=== PATIENT | female | born 1940 | race Caucasian/White ===

== ENCOUNTER 2016-04-20 13:57 | Inpatient (IN) | payer MEDICARE, BC, OTHER ==
[2016-04-20] MEDS ORDERED: Albuterol/Ipratropium 3.0-0.5 MG/3 ML Neb Soln NEB ONE (14:07)
[2016-04-20] MEDS ORDERED: methylPREDNISolone Sodium Succinate 125 MG/2 ML SDV IVPUSH ONE (14:08)
--- NOTE | 2016-04-20 14:09 | EDM.PDOC ---
ED HPI GENERAL MEDICAL PROBLEM - General Stated Complaint: UNK Time Seen by Provider: 04/20/16 14:09 Source of Information: Reports: Patient - History of Present Illness INITIAL COMMENTS - FREE TEXT/NARRATIVE: HISTORY AND PHYSICAL: History of present illness: [] Patient presents with one week of cough and increasing weakness only able to ambulate about 20 feet without becoming short significantly short of breath Initial presentation was to the local walk-in clinic, they directed her over to us She has had several falls since Monday do to weakened state No fever nausea vomiting chills sweats no chest pain headache dizziness or palpitation Review of systems: As per history of present illness and below otherwise all systems reviewed and negative. Past medical history: As per history of present illness and as reviewed below otherwise noncontributory. Surgical history: As per history of present illness and as reviewed below otherwise noncontributory. Social history: No reported history of drug or alcohol abuse. Family history: As per history of present illness and as reviewed below otherwise noncontributory. Physical exam: HEENT: Atraumatic, normocephalic, pupils reactive, negative for conjunctival pallor or scleral icterus, mucous membranes moist, throat clear, neck supple, nontender, trachea midline. Lungs: Clear to auscultation, breath sounds equal bilaterally, chest nontender. Heart: S1S2, regular, negative for clicks, rubs, or JVD. Abdomen: Soft, nondistended, nontender. Negative for masses or hepatosplenomegaly. Negative for costovertebral tenderness. Pelvis: Stable nontender. Genitourinary: Deferred. Rectal: Deferred. Extremities: Atraumatic, negative for cords or calf pain. Neurovascular unremarkable. Neuro: Awake, alert, oriented. Cranial nerves II through XII unremarkable. Cerebellum unremarkable. Motor and sensory unremarkable throughout. Exam nonfocal. Diagnostics: [] Lab as below Chest one view EKG Left wrist [address] without contrast Therapeutics: [] Normal saline 125 cc per hour DuoNeb Solu-Medrol 125 mg IV Impression: [] Cough Supratherapeutic INR Definitive disposition and diagnosis as appropriate pending reevaluation and review of above. chest Pain Score (Numeric/FACES): 5 - Related Data Allergies Allergy/AdvReac Type Severity Reaction Status Date / Time hydrocodone Allergy Rash Verified 04/20/16 14:10 Home Meds: Home Meds Melatonin/Pyridoxine HCl (B6) [Melatonin 5 mg Tablet] 1 each PO BEDTIME [History] Cholecalciferol (Vitamin D3) [Vitamin D3] 2,000 unit PO DAILY 12/10/15 [History] FLUoxetine HCl [Fluoxetine HCl] 40 mg PO DAILY 12/10/15 [History] Iron Polysaccharide Complex [Ferric X-150] 150 mg PO DAILY 12/10/15 [History] OLANZapine [Olanzapine] 5 mg PO DAILY 12/10/15 [History] Warfarin [Coumadin] 5 mg PO DAILY 12/10/15 [History] traZODone 50 mg PO ONETIME 12/10/15 [History] Past Medical History Other Musculoskeletal History: left forearm fracture Psychiatric History: Reports: Anxiety, Depression Oncologic (Cancer) History: Reports: Breast - Past Surgical History HEENT Surgical History: Reports: Adenoidectomy, Tonsillectomy GI Surgical History: Reports: Appendectomy, Cholecystectomy Female Surgical History: Reports: Hysterectomy Oncologic Surgical History: Reports: Mastectomy Social & Family History - Family History Family Medical History: Noncontributory - Tobacco Use Smoking Status *Q: Never Smoker - Recreational Drug Use Recreational Drug Use: No ED ROS GENERAL - Review of Systems Review Of Systems: ROS reveals no pertinent complaints other than HPI. ED EXAM, GENERAL - Physical Exam Exam: See Below Course - Vital Signs Last Recorded V/S: Last Vital Signs Temp 36.7 C 04/20/16 15:31 Pulse 79 04/20/16 15:31 Resp 30 H 04/20/16 15:31 BP 105/86 04/20/16 15:31 Pulse Ox 96 04/20/16 15:31 - Orders/Labs/Meds Orders: Active Orders 24 hr Category Date Time Status EKG Documentation Completion [RC] STAT Care 04/20/16 14:07 Active RT Aerosol Therapy [RC] ASDIRECTED Care 04/20/16 14:07 Active CULTURE BLOOD [BC] Stat Lab 04/20/16 14:29 Received CULTURE BLOOD [BC] Stat Lab 04/20/16 14:47 Received Sodium Chloride 0.9% [Normal Saline] 1,000 ml Med 04/20/16 14:15 Active IV STAT Blood Culture x2 Reflex Set [OM.PC] Stat Oth 04/20/16 14:13 Ordered Medication Orders Sodium Chloride (Normal Saline) 1,000 mls @ 125 mls/hr IV STAT DEVIN Last Admin: 04/20/16 14:34 Dose: 125 mls/hr Labs: Laboratory Tests 04/20/16 04/20/16 04/20/16 Range/Units 14:29 14:29 14:29 WBC 4.27 (4.0-11.0) K/uL RBC 4.02 L (4.30-5.90) M/uL Hgb 12.3 (12.0-16.0) g/dL Hct 37.9 (36.0-46.0) % MCV 94.3 (80.0-98.0) fL MCH 30.6 (27.0-32.0) pg MCHC 32.5 (31.0-37.0) g/dL RDW Std Deviation 49.9 (28.0-62.0) fl RDW Coeff of Joaquin 15 (11.0-15.0) % Plt Count 143 L (150-400) K/uL MPV 10.20 (7.40-12.00) fL Neut % (Auto) 44.0 L (48.0-80.0) % Lymph % (Auto) 45.0 H (16.0-40.0) % [place] % (Auto) 10.3 (0.0-15.0) % Eos % (Auto) 0.2 (0.0-7.0) % Baso % (Auto) 0.5 (0.0-1.5) % Neut # 1.9 (1.4-5.7) K/uL Lymph # 1.9 (0.6-2.4) K/uL [place] # 0.4 (0.0-0.8) K/uL Eos # 0.0 (0.0-0.7) K/uL Baso # 0.0 (0.0-0.1) K/uL Nucleated RBC % 0.0 /100WBC Nucleated RBCs # 0 K/uL INR (0.86-1.11) Sodium 141 (136-146) mmol/L Potassium 3.9 (3.5-5.1) mmol/L Chloride 105 (98-110) mmol/L Carbon Dioxide 26 (21-31) mmol/L BUN 11 (6.0-23.0) mg/dL Creatinine 0.7 (0.6-1.5) mg/dL Est Cr Clr Drug Dosing TNP Estimated GFR (MDRD) > 60.0 ml/min Glucose 96 (60-110) mg/dL Calcium 8.4 L (8.8-10.8) mg/dL Total Bilirubin 0.4 (0.1-1.5) mg/dL AST 43 H (5-40) IU/L ALT 30 (8-54) IU/L Alkaline Phosphatase 83 (40-150) Troponin I < 0.10 (0.0-0.29) NG/ML B-Natriuretic Peptide (<100) PG/ML Total Protein 6.2 (6.0-8.0) g/dL Albumin 3.7 (3.4-4.8) g/dL Globulin 2.5 (2.0-3.5) g/dL Albumin/Globulin Ratio 1.5 (1.3-2.8) Urine Color Urine Appearance Urine pH (5.0-8.0) Ur Specific [place] (1.001-1.035) Urine Protein (NEGATIVE) mg/dL Urine Glucose (UA) (NEGATIVE) mg/dL Urine Ketones (NEGATIVE) mg/dL Urine Occult Blood (NEGATIVE) Urine Nitrite (NEGATIVE) Urine Bilirubin (NEGATIVE) Urine Urobilinogen (<2.0) EU/dL Ur Leukocyte Esterase (NEGATIVE) Urine RBC (0-2/HPF) Urine WBC (0-5/HPF) Ur Epithelial Cells (NONE-FEW) Urine Bacteria (NEGATIVE) 04/20/16 04/20/16 04/20/16 Range/Units 14:29 14:29 15:00 WBC (4.0-11.0) K/uL RBC (4.30-5.90) M/uL Hgb (12.0-16.0) g/dL Hct (36.0-46.0) % MCV (80.0-98.0) fL MCH (27.0-32.0) pg MCHC (31.0-37.0) g/dL RDW Std Deviation (28.0-62.0) fl RDW Coeff of Joaquin (11.0-15.0) % Plt Count (150-400) K/uL MPV (7.40-12.00) fL Neut % (Auto) (48.0-80.0) % Lymph % (Auto) (16.0-40.0) % [place] % (Auto) (0.0-15.0) % Eos % (Auto) (0.0-7.0) % Baso % (Auto) (0.0-1.5) % Neut # (1.4-5.7) K/uL Lymph # (0.6-2.4) K/uL [place] # (0.0-0.8) K/uL Eos # (0.0-0.7) K/uL Baso # (0.0-0.1) K/uL Nucleated RBC % /100WBC Nucleated RBCs # K/uL INR 5.49 H (0.86-1.11) Sodium (136-146) mmol/L Potassium (3.5-5.1) mmol/L Chloride (98-110) mmol/L Carbon Dioxide (21-31) mmol/L BUN (6.0-23.0) mg/dL Creatinine (0.6-1.5) mg/dL Est Cr Clr Drug Dosing Estimated GFR (MDRD) ml/min Glucose (60-110) mg/dL Calcium (8.8-10.8) mg/dL Total Bilirubin (0.1-1.5) mg/dL AST (5-40) IU/L ALT (8-54) IU/L Alkaline Phosphatase (40-150) Troponin I (0.0-0.29) NG/ML B-Natriuretic Peptide 43 (<100) PG/ML Total Protein (6.0-8.0) g/dL Albumin (3.4-4.8) g/dL Globulin (2.0-3.5) g/dL Albumin/Globulin Ratio (1.3-2.8) Urine Color YELLOW Urine Appearance CLEAR Urine pH 7.0 (5.0-8.0) Ur Specific [place] <= 1.005 (1.001-1.035) Urine Protein NEGATIVE (NEGATIVE) mg/dL Urine Glucose (UA) NEGATIVE (NEGATIVE) mg/dL Urine Ketones NEGATIVE (NEGATIVE) mg/dL Urine Occult Blood NEGATIVE (NEGATIVE) Urine Nitrite NEGATIVE (NEGATIVE) Urine Bilirubin NEGATIVE (NEGATIVE) Urine Urobilinogen 0.2 (<2.0) EU/dL Ur Leukocyte Esterase NEGATIVE (NEGATIVE) Urine RBC NONE SEEN (0-2/HPF) Urine WBC 0-1 (0-5/HPF) Ur Epithelial Cells RARE (NONE-FEW) Urine Bacteria RARE (NEGATIVE) Meds: Medications Generic Name Dose Route Start Last Admin Trade Name Carlos PRN Reason Stop Dose Admin Sodium Chloride 1,000 mls @ 125 mls/hr 04/20/16 14:15 04/20/16 14:34 Normal Saline IV 125 mls/hr STAT DEVIN Administration Discontinued Medications Generic Name Dose Route Start Last Admin Trade Name Carlos PRN Reason Stop Dose Admin Albuterol/Ipratropium 3 ml 04/20/16 14:07 04/20/16 14:26 Duoneb 3.0-0.5 Mg/3 Ml NEB 04/20/16 14:08 3 ml ONETIME ONE Administration Methylprednisolone Sodium Succinate 125 mg 04/20/16 14:08 04/20/16 14:33 Solu-Medrol IVPUSH 04/20/16 14:09 125 mg ONETIME ONE Administration Departure - Departure Time of Disposition: 15:39 Disposition: Admitted As Inpatient 67 Condition: fair Clinical Impression: Pleural effusion, Supratherapeutic INR - My Orders Last 24 Hours: My Active Orders 04/20/16 14:07 EKG Documentation Completion [RC] STAT RT Aerosol Therapy [RC] ASDIRECTED 04/20/16 14:13 Blood Culture x2 Reflex Set [OM.PC] Stat 04/20/16 14:15 Sodium Chloride 0.9% [Normal Saline] 1,000 ml IV STAT 04/20/16 14:29 CULTURE BLOOD [BC] Stat 04/20/16 14:47 CULTURE BLOOD [BC] Stat - Assessment/Plan Last 24 Hours: My Active Orders 04/20/16 14:07 EKG Documentation Completion [RC] STAT RT Aerosol Therapy [RC] ASDIRECTED 04/20/16 14:13 Blood Culture x2 Reflex Set [OM.PC] Stat 04/20/16 14:15 Sodium Chloride 0.9% [Normal Saline] 1,000 ml IV STAT 04/20/16 14:29 CULTURE BLOOD [BC] Stat 04/20/16 14:47 CULTURE BLOOD [BC] Stat
[2016-04-20] MEDS ORDERED: Sodium Chloride 0.9% 1,000 ML IV SCH ×2 (14:15→16:50)
[2016-04-20 15:15] LABS: CHLORIDE,CL 105 mmol/L (98-110); SODIUM,NA 141 mmol/L (136-146)
--- NOTE | 2016-04-20 15:28 | CR ---
EXAMINATION: Portable chest radiograph. HISTORY: Pain. FINDINGS: The trachea is midline. The cardiomediastinal silhouette is within normal limits. There is a modera te hiatal hernia. By basilar atelectasis and/or scarring is noted. A trace right pleural effusion is not excluded. Osseous structures appear osteopenic. IMPRESSION: 1. A trace right pleural effusion is not excluded. 2. Moderate hiatal hernia. 3. Mild chronic interstitial prominence.
--- NOTE | 2016-04-20 15:30 | CR ---
EXAMINATION: Left wrist HISTORY: Pain COMPARISON: 05/15/2013 TECHNIQUE: 3 views FINDINGS/IMPRESSION: There is a nondisplaced oblique intra-articular radial styloid fracture identif ied. The remaining visualized osseous structures appear grossly intact however osteopenic. 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 Overlying soft tissue swelling is noted.
--- NOTE | 2016-04-20 15:33 | CT ---
EXAMINATION: Non contrast CT head. Coronal and sagittal reformats. HISTORY: Pain FINDINGS: No evidence of intra or extra axial hemorrhage, midline shift, hydrocephalus or edema. There is mil d generalized atrophy. Mild periventricular and subcortical white matter hypodensities noted. No ext ra-axial fluid collections. There is a stable meningioma overlying the cribriform plate. No hypoattenuation changes in the major vascular territories to suggest acute infarct. No abnormal intracranial calcifications are detected. No evidence of substantial vascular calcifica tions. Paranasal sinuses and mastoid air cells are well aerated without substantial findings. Pituitary fossa appears unremarkable. Calvarium is intact. No evidence of skull fracture. IMPRESSION: 1. No acute intracranial abnormality. 2. Mild generalized atrophy and small vessel ischemic changes. 3. Stable meningioma overlying the cribriform plate.
[2016-04-20] MEDS ORDERED: cefTRIAXone 1 GM in Premix Bag 1 BAG IV ONE (16:37)
[2016-04-20] MEDS ORDERED: Albuterol/Ipratropium 3.0-0.5 MG/3 ML Neb Soln NEB PRN (16:45)
[2016-04-20] MEDS ORDERED: Ondansetron 4 MG/2 ML SDV IVPUSH PRN (16:45)
[2016-04-20] MEDS ORDERED: Acetaminophen 325 MG Tab PO PRN (16:45)
--- NOTE | 2016-04-20 16:58 | PCM.HP ---
H&P History of Present Illness - General Date of Service: 04/20/16 Admit Problem/Dx: pneumonia Source of Information: Patient, Family History Limitations: Reports: No limitations - History of Present Illness Initial Comments - Free Text/Narative: This 76 year old female with pmh of DVT on Coumadin and anxiety presented to the ED today with complaints of weakness, cough and URI. She states over the last couple days she is feeling herself more and more weak from cold. She denies fevers, but has had some chills at home. Confirms cough, that is productive intermittently, sinus congestion with ear fullness, sore throat. She denies chest pain, but has pleuritic pain with coughing. She has had her influenza vaccine and pneumonia vaccine. In the ED influenza swab negative. CXR reported and normal, but there is some bilateral haziness noted. She does not feel ok to go home tonight. INR noted to be elevated at 5, no bleeding noted. She will be admitted for pneumonia and supratherapeutic INR. chest Pain Score (Numeric/FACES): 5 - Related Data Allergies/Adverse Reactions: Allergies Allergy/AdvReac Type Severity Reaction Status Date / Time hydrocodone Allergy Rash Verified 04/20/16 14:10 Home Medications: Home Meds Melatonin/Pyridoxine HCl (B6) [Melatonin 5 mg Tablet] 1 each PO BEDTIME [History] Cholecalciferol (Vitamin D3) [Vitamin D3] 2,000 unit PO DAILY 12/10/15 [History] FLUoxetine HCl [Fluoxetine HCl] 40 mg PO DAILY 12/10/15 [History] Iron Polysaccharide Complex [Ferric X-150] 150 mg PO DAILY 12/10/15 [History] OLANZapine [Olanzapine] 5 mg PO DAILY 12/10/15 [History] Warfarin [Coumadin] 5 mg PO DAILY 12/10/15 [History] traZODone 50 mg PO BEDTIME 12/10/15 [History] Past Medical History HEENT History: Reports: Impaired vision Cardiovascular History: Reports: Blood clots/VTE/DVT. Denies: High cholesterol , Hypertension, HI Respiratory History: Reports: None. Denies: Asthma, COPD Gastrointestinal History: Reports: None. Denies: GI bleed Genitourinary History: Reports: None. 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 Denies: Diabetes, type II Oncologic (Cancer) History: Reports: Breast - Past Surgical History HEENT Surgical History: Reports: Adenoidectomy, Tonsillectomy GI Surgical History: Reports: Appendectomy, Cholecystectomy Female Surgical History: Reports: Hysterectomy Oncologic Surgical History: Reports: Mastectomy Social & Family History - Family History Family Medical History: Noncontributory - Tobacco Use Smoking Status *Q: Never Smoker - Recreational Drug Use Recreational Drug Use: No H&P Review of Systems - Review of Systems: Review Of Systems: See Below General: Reports: chills, malaise, weakness, decreased appetite HEENT: Reports: sinus congestion, sore throat. Denies: headaches, vertigo Pulmonary: Reports: shortness of breath, pleuritic chest pain, cough, sputum Cardiovascular: Reports: no symptoms. Denies: chest pain, palpitations Gastrointestinal: Reports: No symptoms. Denies: Abdominal pain, Black stool, Bloody stool, Diarrhea, Nausea, Vomiting Genitourinary: Reports: no symptoms. Denies: dysuria, frequency, burning Musculoskeletal: Reports: no symptoms Skin: Reports: bruising (fell and injured L wrist, bruising noted to wrist.) Psychiatric: Reports: no symptoms Neurological: Reports: no symptoms Hematologic/Lymphatic: Reports: no symptoms Immunologic: Reports: no symptoms Exam - Exam Exam: See Below - Vital Signs Vital Signs: Last Vital Signs Temp 97.9 F 04/20/16 16:16 Pulse 69 04/20/16 16:16 Resp 26 H 04/20/16 16:16 BP 116/71 04/20/16 16:16 Pulse Ox 95 04/20/16 16:16 Weight: 73.3 kg - Exam General: alert, oriented, cooperative HEENT: Mucosa moist & pink, Pupils equal, Pupils reactive, Rhinitis. No: Nares patent (some congestion and flow decrease) Neck: supple, trachea midline, 2+ carotid pulse wo bruit Lungs: Normal respiratory effort, Rhonchi (L upper lobe) Cardiovascular: regular rate, regular rhythm, normal S1, normal S2 Abdomen: normal bowel sounds, soft. No: organomegaly, tenderness Extremities: normal inspection, normal pulses Skin: other (bruising to L wrist, splint intact, non displaced fracture noted on Xray. ) Neurological: cranial nerves intact Neuro Extensive - Mental Status: alert, oriented x3, normal mood/affect, normal cognition Psychiatric: alert, normal affect, normal mood - Patient Data Result Diagrams: 04/21/16 05:23 04/21/16 05:23 EKG INTERPRETATION EKG Date: 04/20/16 Rhythm: NSR Rate (beats/min): 75 [place]: normal P-wave: present QRS: normal ST-T: normal QT: normal *Q Meaningful Use (ADM) - VTE *Q VTE Criteria *Q: - Stroke *Q Stroke Criteria *Q: - AMI *Q AMI Criteria *Q: - Problem List (1) Pneumonia SNOMED Code(s): 954012917 ICD Code: J18.9 - PNEUMONIA, UNSPECIFIED ORGANISM Status: Acute Current Visit: Yes Qualifiers: Pneumonia type: due to unspecified organism Laterality: unspecified laterality Lung location: unspecified part of lung Qualified Code(s): J18.9 - Pneumonia, unspecified organism (2) General weakness SNOMED Code(s): 56730636 ICD Code: R53.1 - WEAKNESS Status: Acute Current Visit: Yes (3) Supratherapeutic INR SNOMED Code(s): 346126763, 000765198 ICD Code: R79.1 - ABNORMAL COAGULATION PROFILE Status: Acute Current Visit: Yes (4) Distal radius fracture, right SNOMED Code(s): 252479285 ICD Code: S52.501A - UNSP FRACTURE OF THE LOWER END OF RIGHT RADIUS, INIT Status: Chronic Current Visit: No Qualifiers: Encounter type: initial encounter Fracture type: closed Fracture morphology: unspecified fracture morphology Qualified Code(s): S52.501A - Unspecified fracture of the lower end of right radius, initial encounter for closed fracture Problem List Initiated/Reviewed/Updated: Yes Orders Last 24hrs: Active Orders 24 hr Category Date Time Status Intake and Output [RC] QSHIFT Care 04/20/16 16:46 Ordered May Shower [RC] ASDIRECTED Care 04/20/16 16:45 Ordered Oxygen Therapy [RC] PRN Care 04/20/16 16:45 Ordered RT Aerosol Therapy [RC] ASDIRECTED Care 04/20/16 16:47 Ordered Up ad Ptety [RC] ASDIRECTED Care 04/20/16 16:45 Ordered VTE/DVT Education [RC] PER UNIT ROUTINE Care 04/20/16 16:45 Ordered Vital Signs [RC] Q4H Care 04/20/16 16:45 Ordered PT Evaluation and Treatment [CONS] Routine Cons 04/21/16 05:00 Ordered Regular Diet [DIET] Diet 04/20/16 Dinner Ordered BASIC METABOLIC PANEL,BMP [CHEM] AM Lab 04/21/16 05:11 Ordered BASIC METABOLIC PANEL,BMP [CHEM] AM Lab 04/22/16 05:11 Ordered BASIC METABOLIC PANEL,BMP [CHEM] AM Lab 04/23/16 05:11 Ordered CBC WITH AUTO DIFF [HEME] AM Lab 04/21/16 05:11 Ordered CBC WITH AUTO DIFF [HEME] AM Lab 04/22/16 05:11 Ordered CBC WITH AUTO DIFF [HEME] AM Lab 04/23/16 05:11 Ordered CULTURE SPUTUM + SMEAR [RM] Stat Lab 04/20/16 16:45 Uncollected INR,PT,PROTHROMBIN TIME [COAG] AM Lab 04/21/16 05:11 Ordered INR,PT,PROTHROMBIN TIME [COAG] AM Lab 04/22/16 05:11 Ordered INR,PT,PROTHROMBIN TIME [COAG] AM Lab 04/23/16 05:11 Ordered Acetaminophen [Tylenol] Med 04/20/16 16:45 Ordered 650 mg PO Q4H PRN Albuterol/Ipratropium [DuoNeb 3.0-0.5 MG/3 ML] Med 04/20/16 16:45 Ordered 3 ml NEB Q4HRRT PRN Cholecalciferol (Vitamin D3) [Vitamin D3] Med 04/21/16 09:00 Ordered 2,000 unit PO DAILY Doxycycline [Vibramycin] Med 04/20/16 17:00 Ordered 100 mg PO Q12HR FLUoxetine HCl [Fluoxetine HCl] Med 04/21/16 09:00 Ordered 40 mg PO DAILY Fluticasone Propionate [Flonase] Med 04/20/16 17:00 Ordered 1 gm NASBOTH DAILY Iron Polysaccharides Complex [Ferrex 150] Med 04/21/16 09:00 Ordered 150 mg PO DAILY Melatonin/Pyridoxine HCl (B6) [Melatonin 5 mg Tablet] Med 04/20/16 21:00 Ordered 1 each PO BEDTIME OLANZapine [ZyPREXA] Med 04/21/16 09:00 Ordered 5 mg PO DAILY Ondansetron [Zofran] Med 04/20/16 16:45 Ordered 4 mg IVPUSH Q4H PRN Sodium Chloride 0.9% [Normal Saline] 1,000 ml Med 04/20/16 16:50 Ordered IV STAT cefTRIAXone [Rocephin in Dextrose,Iso-Osm 1 GM/50 ML] 1 Med 04/21/16 16:00 Ordered gm Premix Bag 1 bag IV Q24H traZODone Med 04/20/16 17:00 Ordered 50 mg PO ONETIME Resuscitation Status Routine Resus Stat 04/20/16 16:45 Ordered Medication Orders Acetaminophen (Tylenol) 650 mg PO Q4H PRN PRN Reason: Pain Albuterol/Ipratropium (Duoneb 3.0-0.5 Mg/3 Ml) 3 ml NEB Q4HRRT PRN PRN Reason: Shortness Of Breath/wheezing Doxycycline Hyclate (Vibramycin) 100 mg PO Q12HR DEVIN Ceftriaxone Sodium/Dextrose 1 (gm/ Premix) 50 mls @ 100 mls/hr IV ONETIME ONE Stop: 04/20/16 17:06 Ceftriaxone Sodium/Dextrose 1 (gm/ Premix) 50 mls @ 100 mls/hr IV Q24H DEVIN Sodium Chloride (Normal Saline) 1,000 mls @ 125 mls/hr IV STAT DEVIN Stop: 04/20/16 22:14 Ondansetron HCl (Zofran) 4 mg IVPUSH Q4H PRN PRN Reason: Nausea Assessment/Plan Comment:: This 76 year old female admitted for pneumonia and supratherapeutic INR 1. Pneumonia: Will start Rocephin and Doxycycline for community acquired pneumonia. BC and sputum culture pending. Duonebs and oxygen as needed 2. Supratherpeutic INR: Will check INR in am, not vitamin K patient is not actively bleeding. 3. Anxiety: Continue home medications 4. Generalized weakness: Consult PT for strengthening. 5. L wrist fracture: Non-displaced oblique intra-articular radial styloid fracture, overlying soft tissue swelling noted. Splint placed in ED. Will arrange follow up with Orthopedics VTE: Coumadin (holding for elevated INR) Dispo: 1-2 days pending improvement
[2016-04-20] MEDS ORDERED: traZODone 50 MG Tab PO SCH (17:00)
[2016-04-20] MEDS: Doxycycline 100 MG Cap PO SCH ×2 (17:16→22:14)
[2016-04-20] MEDS: Fluticasone Propionate Nasal Spray 16 GM Bottle NASBOTH SCH (17:33)
[2016-04-20] MEDS ORDERED: traZODone 50 MG Tab PO ONE (22:41)
[2016-04-21 06:14] LABS: CHLORIDE,CL 112 mmol/L (98-110); SODIUM,NA 144 mmol/L (136-146)
[2016-04-21 08:10] LABS: CHLORIDE,CL 112 mmol/L (98-110); SODIUM,NA 144 mmol/L (136-146)
[2016-04-21] MEDS: Cholecalciferol (Vitamin D3) 1,000 Unit Tab PO SCH (08:18)
[2016-04-21] MEDS: OLANZapine 5 MG Tab PO SCH (08:18)
[2016-04-21] MEDS: Iron Polysaccharides Complex 150 MG Cap PO SCH (08:18)
[2016-04-21] MEDS: FLUoxetine 20 MG Cap PO SCH (08:18)
[2016-04-21] MEDS: Doxycycline 100 MG Cap PO SCH ×2 (08:18→21:25)
[2016-04-21] MEDS: Fluticasone Propionate Nasal Spray 16 GM Bottle NASBOTH SCH (08:19)
--- NOTE | 2016-04-21 09:28 | PCM.PN ---
- General Info Date of Service: 04/21/16 Admission Dx/Problem (Free Text): pneumonia Subjective Update: Feeling fair today. Continues to have dry cough but feels like there is something to cough up but it won't loosen up. Still having pleuritic chest pain with coughing, some SOB and continued generalized weakness. - Review of Systems General: Reports: weakness, malaise HEENT: Reports: sinus congestion, sore throat, rhinitis Pulmonary: Reports: shortness of breath (intermittently), pleuritic chest pain, cough. Denies: sputum Cardiovascular: Reports: no symptoms. Denies: chest pain, palpitations, edema Gastrointestinal: Reports: No symptoms. Denies: Abdominal pain, Nausea, Vomiting Genitourinary: Reports: no symptoms Musculoskeletal: Reports: no symptoms Skin: Reports: no symptoms Neurological: Reports: no symptoms Psychiatric: Reports: no symptoms - Patient Data Vitals - most recent: Last Vital Signs Temp 97.2 F 04/21/16 07:57 Pulse 71 04/21/16 07:57 Resp 20 04/21/16 07:57 BP 132/75 04/21/16 07:57 Pulse Ox 92 L 04/21/16 07:57 Weight - most recent: 77.5 kg I&O - last 24 hours: Intake & Output 04/20/16 04/21/16 04/21/16 22:59 06:59 14:59 Intake Total 50 1500 Output Total 700 Balance 50 800 Lab Results last 24 hrs: Laboratory Results - last 24 hr 04/21/16 04/21/16 04/21/16 Range/Units 05:23 05:23 05:23 WBC 1.77 L (4.0-11.0) K/uL RBC 3.71 L (4.30-5.90) M/uL Hgb 11.3 L (12.0-16.0) g/dL Hct 34.7 L (36.0-46.0) % MCV 93.5 (80.0-98.0) fL MCH 30.5 (27.0-32.0) pg MCHC 32.6 (31.0-37.0) g/dL RDW Std Deviation 49.2 (28.0-62.0) fl RDW Coeff of Joaquin 14 (11.0-15.0) % Plt Count 138 L (150-400) K/uL MPV 9.90 (7.40-12.00) fL Neut % (Auto) 47.5 L (48.0-80.0) % Lymph % (Auto) 43.5 H (16.0-40.0) % [place] % (Auto) 9.0 (0.0-15.0) % Eos % (Auto) 0.0 (0.0-7.0) % Baso % (Auto) 0.0 (0.0-1.5) % Neut # 0.8 L (1.4-5.7) K/uL Lymph # 0.8 (0.6-2.4) K/uL [place] # 0.2 (0.0-0.8) K/uL Eos # 0.0 (0.0-0.7) K/uL Baso # 0.0 (0.0-0.1) K/uL Nucleated RBC % 0.0 /100WBC Nucleated RBCs # 0 K/uL INR 5.78 H (0.86-1.11) Sodium 144 (136-146) mmol/L Potassium 4.1 (3.5-5.1) mmol/L Chloride 112 H (98-110) mmol/L Carbon Dioxide 26 (21-31) mmol/L BUN 14 (6.0-23.0) mg/dL Creatinine 0.7 (0.6-1.5) mg/dL Est Cr Clr Drug Dosing 60.40 mL/min Estimated GFR (MDRD) > 60.0 ml/min Glucose 144 H (60-110) mg/dL Calcium 8.3 L (8.8-10.8) mg/dL Total Bilirubin (0.1-1.5) mg/dL AST (5-40) IU/L ALT (8-54) IU/L Alkaline Phosphatase (40-150) Total Protein (6.0-8.0) g/dL Albumin (3.4-4.8) g/dL Globulin (2.0-3.5) g/dL Albumin/Globulin Ratio (1.3-2.8) 04/21/16 Range/Units 05:23 WBC (4.0-11.0) K/uL RBC (4.30-5.90) M/uL Hgb (12.0-16.0) g/dL Hct (36.0-46.0) % MCV (80.0-98.0) fL MCH (27.0-32.0) pg MCHC (31.0-37.0) g/dL RDW Std Deviation (28.0-62.0) fl RDW Coeff of Joaquin (11.0-15.0) % Plt Count (150-400) K/uL MPV (7.40-12.00) fL Neut % (Auto) (48.0-80.0) % Lymph % (Auto) (16.0-40.0) % [place] % (Auto) (0.0-15.0) % Eos % (Auto) (0.0-7.0) % Baso % (Auto) (0.0-1.5) % Neut # (1.4-5.7) K/uL Lymph # (0.6-2.4) K/uL [place] # (0.0-0.8) K/uL Eos # (0.0-0.7) K/uL Baso # (0.0-0.1) K/uL Nucleated RBC % /100WBC Nucleated RBCs # K/uL INR (0.86-1.11) Sodium 144 (136-146) mmol/L Potassium 4.2 (3.5-5.1) mmol/L Chloride 112 H (98-110) mmol/L Carbon Dioxide 25 (21-31) mmol/L BUN 14 (6.0-23.0) mg/dL Creatinine 0.7 (0.6-1.5) mg/dL Est Cr Clr Drug Dosing 60.40 mL/min Estimated GFR (MDRD) > 60.0 ml/min Glucose 142 H (60-110) mg/dL Calcium 8.2 L (8.8-10.8) mg/dL Total Bilirubin 0.2 (0.1-1.5) mg/dL AST 49 H (5-40) IU/L ALT 40 (8-54) IU/L Alkaline Phosphatase 76 (40-150) Total Protein 5.6 L (6.0-8.0) g/dL Albumin 3.2 L (3.4-4.8) g/dL Globulin 2.4 (2.0-3.5) g/dL Albumin/Globulin Ratio 1.3 (1.3-2.8) Med Orders - Current: Current Medications Acetaminophen (Tylenol) 650 mg PO Q4H PRN PRN Reason: Pain Albuterol/Ipratropium (Duoneb 3.0-0.5 Mg/3 Ml) 3 ml NEB Q4HRRT PRN PRN Reason: Shortness Of Breath/wheezing Cholecalciferol (Vitamin D3) 2,000 units PO DAILY [facility] Last Admin: 04/21/16 08:18 Dose: 2,000 units Doxycycline Hyclate (Vibramycin) 100 mg PO Q12HR [facility] Last Admin: 04/21/16 08:18 Dose: 100 mg Fluoxetine HCl (Prozac) 40 mg PO DAILY [facility] Last Admin: 04/21/16 08:18 Dose: 40 mg Fluticasone Propionate (Flonase) 1 gm NASBOTH DAILY [facility] Last Admin: 04/21/16 08:19 Dose: 1 spray Ceftriaxone Sodium/Dextrose 1 (gm/ Premix) 50 mls @ 100 mls/hr IV Q24H [facility] Olanzapine (Zyprexa) 5 mg PO DAILY [facility] Last Admin: 04/21/16 08:18 Dose: 5 mg Ondansetron HCl (Zofran) 4 mg IVPUSH Q4H PRN PRN Reason: Nausea Melatonin/Pyridoxine (Hcl (B6)) 1 each PO BEDTIME [facility] Last Admin: 04/20/16 22:14 Dose: Not Given Polysaccharide Iron Complex (Ferrex 150) 150 mg PO DAILY [facility] Last Admin: 04/21/16 08:18 Dose: 150 mg Trazodone HCl (Trazodone) 50 mg PO BEDTIME [facility] Discontinued Medications Albuterol/Ipratropium (Duoneb 3.0-0.5 Mg/3 Ml) 3 ml NEB ONETIME ONE Stop: 04/20/16 14:08 Last Admin: 04/20/16 14:26 Dose: 3 ml Sodium Chloride (Normal Saline) 1,000 mls @ 125 mls/hr IV STAT [facility] Last Admin: 04/20/16 14:34 Dose: 125 mls/hr Ceftriaxone Sodium/Dextrose 1 (gm/ Premix) 50 mls @ 100 mls/hr IV ONETIME ONE Stop: 04/20/16 17:06 Last Admin: 04/20/16 17:13 Dose: 100 mls/hr Sodium Chloride (Normal Saline) 1,000 mls @ 125 mls/hr IV STAT [facility]IN Stop: 04/20/16 22:14 Last Admin: 04/20/16 17:30 Dose: 125 mls/hr Methylprednisolone Sodium Succinate (Solu-Medrol) 125 mg IVPUSH ONETIME ONE Stop: 04/20/16 14:09 Last Admin: 04/20/16 14:33 Dose: 125 mg Trazodone HCl (Trazodone) 50 mg PO ONETIME [facility] Trazodone HCl (Trazodone) 50 mg PO ONETIME ONE Stop: 04/20/16 22:42 Last Admin: 04/20/16 22:50 Dose: 50 mg - Exam General: alert, oriented, cooperative HEENT: Pupils equal, Pupils reactive, EOMI, Mucous membr. moist/pink Neck: supple Lungs: Clear to auscultation, Normal respiratory effort Cardiovascular: regular rate, regular rhythm Abdomen: bowel sounds present, soft, no tenderness, no distension Extremities: no edema, normal pulses, other (splint to L wrist.) Skin: warm, dry, intact, other (bruising to L wrist ) Neurological: no new focal deficit - Problem List & Annotations (1) Pneumonia SNOMED Code(s): 420331265 Code(s): J18.9 - PNEUMONIA, UNSPECIFIED ORGANISM Status: Acute Current Visit: Yes Qualifiers: Pneumonia type: due to unspecified organism Laterality: unspecified laterality Lung location: unspecified part of lung Qualified Code(s): J18.9 - Pneumonia, unspecified organism (2) General weakness SNOMED Code(s): 44218360 Code(s): R53.1 - WEAKNESS Status: Acute Current Visit: Yes (3) Supratherapeutic INR SNOMED Code(s): 366065156, 504033318 Code(s): R79.1 - ABNORMAL COAGULATION PROFILE Status: Acute Current Visit : Yes (4) Distal radius fracture, right SNOMED Code(s): 475571591 Code(s): S52.501A - UNSP FRACTURE OF THE LOWER END OF RIGHT RADIUS, INIT Status: Chronic Current Visit: No Qualifiers: Encounter type: initial encounter Fracture type: closed Fracture morphology: unspecified fracture morphology Qualified Code(s): S52.501A - Unspecified fracture of the lower end of right radius, initial encounter for closed fracture - Problem List Review Problem List Initiated/Reviewed/Updated: Yes - My Orders Last 24 Hours: My Active Orders 04/20/16 16:45 May Shower [RC] ASDIRECTED Oxygen Therapy [RC] PRN Up ad Petty [RC] ASDIRECTED VTE/DVT Education [RC] DAILY Vital Signs [RC] Q4H CULTURE SPUTUM + SMEAR [RM] Stat Acetaminophen [Tylenol] 650 mg PO Q4H PRN Albuterol/Ipratropium [DuoNeb 3.0-0.5 MG/3 ML] 3 ml NEB Q4HRRT PRN Ondansetron [Zofran] 4 mg IVPUSH Q4H PRN Resuscitation Status Routine 04/20/16 16:46 Intake and Output [RC] Q12H 04/20/16 17:00 Doxycycline [Vibramycin] 100 mg PO Q12HR Fluticasone Propionate [Flonase] 1 gm NASBOTH DAILY 04/20/16 21:00 Patient's Own Medication [Ptom] 1 each PO BEDTIME 04/20/16 22:19 traZODone 50 mg PO BEDTIME 04/20/16 Dinner Regular Diet [DIET] 04/21/16 05:00 PT Evaluation and Treatment [CONS] Routine 04/21/16 09:00 Cholecalciferol (Vitamin D3) [Vitamin D3] 2,000 units PO DAILY FLUoxetine [PROzac] 40 mg PO DAILY Iron Polysaccharides Complex [Ferrex 150] 150 mg PO DAILY OLANZapine [ZyPREXA] 5 mg PO DAILY 04/21/16 16:00 cefTRIAXone [Rocephin in Dextrose,Iso-Osm 1 GM/50 ML] 1 gm Premix Bag 1 bag IV Q24H 04/22/16 05:11 CBC WITH AUTO DIFF [HEME] AM INR,PT,PROTHROMBIN TIME [COAG] AM 04/23/16 05:11 CBC WITH AUTO DIFF [HEME] AM INR,PT,PROTHROMBIN TIME [COAG] AM - Plan Plan:: This 76 year old female admitted for pneumonia and supratherapeutic INR 1. Pneumonia: Continue Rocephin and Doxycycline for community acquired pneumonia. BC and sputum culture pending. Duonebs and oxygen as needed. Will add Mucinex to help loosen secretions. May be viral, WBC 1.77 today with neutrophils low 47.5 and lymphocytes elevated 43.5. Influenza swab negative. 2. Supratherpeutic INR: INR remains 5 today. Continue to monitor as there is no active bleeding. Hold Coumadin. 3. Anxiety: Continue home medications 4. Generalized weakness: Consult PT for strengthening. 5. L wrist fracture: Splint intact, little to no pain. Able to move fingers well , no numbness or tingling. Arrange outpatient appointment with Orthopedics. VTE: Coumadin. Dispo: 1-2 days pending improvement
[2016-04-21] MEDS: guaiFENesin 600 MG Tab.ER PO SCH ×2 (11:09→14:39)
[2016-04-21] MEDS: cefTRIAXone 1 GM in Premix Bag 1 BAG IV SCH (16:00)
[2016-04-21] MEDS ORDERED: diphenhydrAMINE 25 MG Cap PO PRN (20:59)
[2016-04-21] MEDS: traZODone 50 MG Tab PO SCH (21:26)
[2016-04-22 06:03] LABS: CHLORIDE,CL 113 mmol/L (98-110); SODIUM,NA 144 mmol/L (136-146)
--- NOTE | 2016-04-22 08:42 | US ---
ULTRASOUND EXAMINATION OF the left lower extremity WITH DOPPLER HISTORY: Rule out DVT FINDINGS: Examination of the left leg was performed from the groin to the calf region. There is incomplete com pressibility of the left common femoral and femoral vein with good blood flow and augmentation. The remaining venous structures appear normal. There is no evidence of deep vein thrombosis. 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
[2016-04-22] MEDS: Iron Polysaccharides Complex 150 MG Cap PO SCH (09:41)
[2016-04-22] MEDS: Fluticasone Propionate Nasal Spray 16 GM Bottle NASBOTH SCH (09:43)
[2016-04-22] MEDS: FLUoxetine 20 MG Cap PO SCH (09:45)
[2016-04-22] MEDS: Cholecalciferol (Vitamin D3) 1,000 Unit Tab PO SCH (09:46)
[2016-04-22] MEDS: Doxycycline 100 MG Cap PO SCH ×2 (09:46→20:18)
[2016-04-22] MEDS: OLANZapine 5 MG Tab PO SCH (09:47)
--- NOTE | 2016-04-22 10:13 | PCM.PN ---
- General Info Date of Service: 04/22/16 Admission Dx/Problem (Free Text): pneumonia Subjective Update: Feeling fair today, continues to feel weak but is improving. She isn't coughing much up and SOB is improving. Appetite is improving Denies chest pain or palpitations. Functional Status: Reports: pain controlled, tolerating diet, urinating - Review of Systems General: Reports: no symptoms. Denies: fever HEENT: Reports: sinus congestion (improving). Denies: sore throat, rhinitis Pulmonary: Reports: no symptoms, shortness of breath (intermittent), cough (dry mostly). Denies: pleuritic chest pain, sputum Cardiovascular: Denies: chest pain, palpitations Gastrointestinal: Reports: No symptoms. Denies: Abdominal pain, Nausea, Vomiting Genitourinary: Reports: no symptoms Musculoskeletal: Reports: no symptoms Skin: Reports: no symptoms Neurological: Reports: no symptoms Psychiatric: Reports: no symptoms - Patient Data Vitals - most recent: Last Vital Signs Temp 96.5 F 04/22/16 04:00 Pulse 68 04/21/16 16:00 Resp 17 04/22/16 04:00 BP 100/55 L 04/22/16 04:00 Pulse Ox 95 04/22/16 04:00 Weight - most recent: 77.5 kg I&O - last 24 hours: Intake & Output 04/21/16 04/22/16 04/22/16 22:59 06:59 14:59 Intake Total 1720 250 Output Total 1100 400 Balance 620 -150 Lab Results last 24 hrs: Laboratory Results - last 24 hr 04/22/16 04/22/16 04/22/16 Range/Units 05:04 05:04 05:04 WBC 6.38 (4.0-11.0) K/uL RBC 3.37 L (4.30-5.90) M/uL Hgb 10.4 L (12.0-16.0) g/dL Hct 32.8 L (36.0-46.0) % MCV 97.3 (80.0-98.0) fL MCH 30.9 (27.0-32.0) pg MCHC 31.7 (31.0-37.0) g/dL RDW Std Deviation 49.0 (28.0-62.0) fl RDW Coeff of Joaquin 14 (11.0-15.0) % Plt Count 171 (150-400) K/uL MPV 9.90 (7.40-12.00) fL Neut % (Auto) 39.9 L (48.0-80.0) % Lymph % (Auto) 48.7 H (16.0-40.0) % [place] % (Auto) 11.1 (0.0-15.0) % Eos % (Auto) 0.3 (0.0-7.0) % Baso % (Auto) 0.0 (0.0-1.5) % Neut # 2.5 (1.4-5.7) K/uL Lymph # 3.1 H (0.6-2.4) K/uL [place] # 0.7 (0.0-0.8) K/uL Eos # 0.0 (0.0-0.7) K/uL Baso # 0.0 (0.0-0.1) K/uL INR 3.93 H (0.86-1.11) Sodium 144 (136-146) mmol/L Potassium 4.2 (3.5-5.1) mmol/L Chloride 113 H (98-110) mmol/L Carbon Dioxide 26 (21-31) mmol/L BUN 22 (6.0-23.0) mg/dL Creatinine 0.7 (0.6-1.5) mg/dL Est Cr Clr Drug Dosing 60.40 mL/min Estimated GFR (MDRD) > 60.0 ml/min Glucose 80 (60-110) mg/dL Calcium 8.0 L (8.8-10.8) mg/dL Total Bilirubin 0.4 (0.1-1.5) mg/dL AST 39 (5-40) IU/L ALT 36 (8-54) IU/L Alkaline Phosphatase 64 (40-150) Total Protein 4.8 L (6.0-8.0) g/dL Albumin 3.1 L (3.4-4.8) g/dL Globulin 1.7 L (2.0-3.5) g/dL Albumin/Globulin Ratio 1.8 (1.3-2.8) Rodney Results last 24 hrs: Microbiology 04/21/16 11:00 Gram Stain - Preliminary Sputum - Expectorated Med Orders - Current: Current Medications Acetaminophen (Tylenol) 650 mg PO Q4H PRN PRN Reason: Pain Albuterol/Ipratropium (Duoneb 3.0-0.5 Mg/3 Ml) 3 ml NEB Q4HRRT PRN PRN Reason: Shortness Of Breath/wheezing Cholecalciferol (Vitamin D3) 2,000 units PO DAILY [facility] Last Admin: 04/22/16 09:46 Dose: 2,000 units Diphenhydramine HCl (Benadryl) 25 mg PO Q6H PRN PRN Reason: Itching Last Admin: 04/21/16 21:26 Dose: 25 mg Doxycycline Hyclate (Vibramycin) 100 mg PO Q12HR [facility] Last Admin: 04/22/16 09:46 Dose: 100 mg Fluoxetine HCl (Prozac) 40 mg PO DAILY [facility] Last Admin: 04/22/16 09:45 Dose: 40 mg Fluticasone Propionate (Flonase) 1 gm NASBOTH DAILY [facility] Last Admin: 04/22/16 09:43 Dose: 1 spray Ceftriaxone Sodium/Dextrose 1 (gm/ Premix) 50 mls @ 100 mls/hr IV Q24H [facility] Last Admin: 04/21/16 16:00 Dose: 100 mls/hr Olanzapine (Zyprexa) 5 mg PO DAILY [facility] Last Admin: 04/22/16 09:47 Dose: 5 mg Ondansetron HCl (Zofran) 4 mg IVPUSH Q4H PRN PRN Reason: Nausea Melatonin/Pyridoxine (Hcl (B6)) 1 each PO BEDTIME [facility] Last Admin: 04/21/16 21:26 Dose: Not Given Polysaccharide Iron Complex (Ferrex 150) 150 mg PO DAILY [facility] Last Admin: 04/22/16 09:41 Dose: 150 mg Trazodone HCl (Trazodone) 50 mg PO BEDTIME [facility] Last Admin: 04/21/16 21:26 Dose: 50 mg Discontinued Medications Albuterol/Ipratropium (Duoneb 3.0-0.5 Mg/3 Ml) 3 ml NEB ONETIME ONE Stop: 04/20/16 14:08 Last Admin: 04/20/16 14:26 Dose: 3 ml Guaifenesin (Mucinex) 600 mg PO TID [facility] Last Admin: 04/21/16 14:39 Dose: 600 mg Sodium Chloride (Normal Saline) 1,000 mls @ 125 mls/hr IV STAT [facility] Last Admin: 04/20/16 14:34 Dose: 125 mls/hr Ceftriaxone Sodium/Dextrose 1 (gm/ Premix) 50 mls @ 100 mls/hr IV ONETIME ONE Stop: 04/20/16 17:06 Last Admin: 04/20/16 17:13 Dose: 100 mls/hr Sodium Chloride (Normal Saline) 1,000 mls @ 125 mls/hr IV STAT [facility] Stop: 04/20/16 22:14 Last Admin: 04/20/16 17:30 Dose: 125 mls/hr Methylprednisolone Sodium Succinate (Solu-Medrol) 125 mg IVPUSH ONETIME ONE Stop: 04/20/16 14:09 Last Admin: 04/20/16 14:33 Dose: 125 mg Trazodone HCl (Trazodone) 50 mg PO ONETIME [facility] Trazodone HCl (Trazodone) 50 mg PO ONETIME ONE Stop: 04/20/16 22:42 Last Admin: 04/20/16 22:50 Dose: 50 mg - Exam General: alert, oriented, cooperative Neck: supple Lungs: Clear to auscultation, Normal respiratory effort Cardiovascular: regular rate, regular rhythm, no murmurs Abdomen: bowel sounds present, soft, no tenderness, no distension Extremities: no edema, normal pulses, no tenderness/swelling, other (Splint to L wrist, CMS intact and is able to freely move fingers without increase in pain. No parathesias) Skin: warm, dry, intact, other (bruising to L wrist.) Psy/Mental Status: alert, normal affect, normal mood - Problem List & Annotations (1) Pneumonia SNOMED Code(s): 583158042 Code(s): J18.9 - PNEUMONIA, UNSPECIFIED ORGANISM Status: Acute Current Visit: Yes Qualifiers: Pneumonia type: due to unspecified organism Laterality: unspecified laterality Lung location: unspecified part of lung Qualified Code(s): J18.9 - Pneumonia, unspecified organism (2) General weakness SNOMED Code(s): 52623274 Code(s): R53.1 - WEAKNESS Status: Acute Current Visit: Yes (3) Supratherapeutic INR SNOMED Code(s): 002284950, 409265738 Code(s): R79.1 - ABNORMAL COAGULATION PROFILE Status: Acute Current Visit : Yes (4) Distal radius fracture, right SNOMED Code(s): 770856664 Code(s): S52.501A - UNSP FRACTURE OF THE LOWER END OF RIGHT RADIUS, INIT Status: Chronic Current Visit: No Qualifiers: Encounter type: initial encounter Fracture type: closed Fracture morphology: unspecified fracture morphology Qualified Code(s): S52.501A - Unspecified fracture of the lower end of right radius, initial encounter for closed fracture - Problem List Review Problem List Initiated/Reviewed/Updated: Yes - My Orders Last 24 Hours: My Active Orders 04/21/16 11:00 CULTURE SPUTUM + SMEAR [RM] Stat 04/21/16 16:00 cefTRIAXone [Rocephin in Dextrose,Iso-Osm 1 GM/50 ML] 1 gm Premix Bag 1 bag IV Q24H 04/23/16 05:00 COMPREHENSIVE METABOLIC PN,CMP [CHEM] DAILY 04/23/16 05:11 CBC WITH AUTO DIFF [HEME] AM INR,PT,PROTHROMBIN TIME [COAG] AM - Plan Plan:: This 76 year old female admitted for pneumonia and supratherapeutic INR 1. Pneumonia: Continue Rocephin and Doxycycline for community acquired pneumonia. BC 03/02 positive, will monitor until MIS back. Sputum culture pending. Duonebs and oxygen as needed. Mucinex discontinued due to flushing. WBC 6,000 today. 2. Supratherpeutic INR: INR remains 3.9 today. Continue to monitor as there is no active bleeding. Hold Coumadi today. Will restart home dosing tomorrow, INR to be checked next week with PCP. 3. Anxiety: Continue home medications 4. Generalized weakness: Consult PT for strengthening. 5. L wrist fracture: Splint intact, little to no pain. Able to move fingers well , no numbness or tingling. Arrange outpatient appointment with Orthopedics. 6. L leg swelling: Nursing noted swelling last evening to L leg. Patient reports it intermittently swells at times. 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 Doppler complete which was negative for DVT. VTE: Coumadin. Dispo: Discharge in am.
[2016-04-22] MEDS: cefTRIAXone 1 GM in Premix Bag 1 BAG IV SCH (16:02)
[2016-04-22] MEDS: traZODone 50 MG Tab PO SCH (20:18)
[2016-04-23 07:03] LABS: CHLORIDE,CL 109 mmol/L (98-110); SODIUM,NA 144 mmol/L (136-146)
[2016-04-23] MEDS: Iron Polysaccharides Complex 150 MG Cap PO SCH (09:07)
[2016-04-23] MEDS: FLUoxetine 20 MG Cap PO SCH (09:07)
[2016-04-23] MEDS: OLANZapine 5 MG Tab PO SCH (09:07)
[2016-04-23] MEDS: Doxycycline 100 MG Cap PO SCH ×2 (09:07→22:09)
[2016-04-23] MEDS: Fluticasone Propionate Nasal Spray 16 GM Bottle NASBOTH SCH (09:08)
[2016-04-23] MEDS: Cholecalciferol (Vitamin D3) 1,000 Unit Tab PO SCH (09:11)
--- NOTE | 2016-04-23 15:01 | PCM.PN ---
- General Info Date of Service: 04/23/16 - Review of Systems Neurological: Denies: confusion Psychiatric: Reports: other (nausea, malaise) - Patient Data Vitals - most recent: Last Vital Signs Temp 97.2 F 04/23/16 04:00 Pulse 63 04/22/16 16:00 Resp 17 04/23/16 04:00 BP 111/64 04/23/16 04:00 Pulse Ox 92 L 04/23/16 04:00 Weight - most recent: 77.5 kg I&O - last 24 hours: Intake & Output 04/22/16 04/23/16 04/23/16 22:59 06:59 14:59 Intake Total 970 400 Output Total 1425 1650 Balance -455 -1250 Lab Results last 24 hrs: Laboratory Results - last 24 hr 04/23/16 04/23/16 04/23/16 Range/Units 06:10 06:10 06:10 WBC 6.79 (4.0-11.0) K/uL RBC 3.77 L (4.30-5.90) M/uL Hgb 11.6 L (12.0-16.0) g/dL Hct 35.3 L (36.0-46.0) % MCV 93.6 (80.0-98.0) fL MCH 30.8 (27.0-32.0) pg MCHC 32.9 (31.0-37.0) g/dL RDW Std Deviation 50.1 (28.0-62.0) fl RDW Coeff of Joaquin 15 (11.0-15.0) % Plt Count 204 (150-400) K/uL MPV 9.70 (7.40-12.00) fL Neut % (Auto) 45.0 L (48.0-80.0) % Lymph % (Auto) 42.4 H (16.0-40.0) % Pender % (Auto) 11.2 (0.0-15.0) % Eos % (Auto) 1.3 (0.0-7.0) % Baso % (Auto) 0.1 (0.0-1.5) % Neut # 3.1 (1.4-5.7) K/uL Lymph # 2.9 H (0.6-2.4) K/uL Pender # 0.8 (0.0-0.8) K/uL Eos # 0.1 (0.0-0.7) K/uL Baso # 0.0 (0.0-0.1) K/uL Nucleated RBC % 0.0 /100WBC Nucleated RBCs # 0 K/uL INR 2.07 H (0.86-1.11) Sodium 144 (136-146) mmol/L Potassium 4.0 (3.5-5.1) mmol/L Chloride 109 (98-110) mmol/L Carbon Dioxide 27 (21-31) mmol/L BUN 21 (6.0-23.0) mg/dL Creatinine 0.7 (0.6-1.5) mg/dL Est Cr Clr Drug Dosing 60.40 mL/min Estimated GFR (MDRD) > 60.0 ml/min Glucose 82 (60-110) mg/dL Calcium 8.6 L (8.8-10.8) mg/dL Total Bilirubin 0.4 (0.1-1.5) mg/dL AST 31 (5-40) IU/L ALT 35 (8-54) IU/L Alkaline Phosphatase 72 (40-150) Total Protein 5.4 L (6.0-8.0) g/dL Albumin 3.3 L (3.4-4.8) g/dL Globulin 2.1 (2.0-3.5) g/dL Albumin/Globulin Ratio 1.6 (1.3-2.8) Rodney Results last 24 hrs: Microbiology 04/21/16 11:00 Gram Stain - Final Sputum - Expectorated Sputum Culture - Final Normal Respiratory Purvi Med Orders - Current: Current Medications Acetaminophen (Tylenol) 650 mg PO Q4H PRN PRN Reason: Pain Albuterol/Ipratropium (Duoneb 3.0-0.5 Mg/3 Ml) 3 ml NEB Q4HRRT PRN PRN Reason: Shortness Of Breath/wheezing Cholecalciferol (Vitamin D3) 2,000 units PO DAILY [facility] Last Admin: 04/23/16 09:11 Dose: 2,000 units Diphenhydramine HCl (Benadryl) 25 mg PO Q6H PRN PRN Reason: Itching Last Admin: 04/21/16 21:26 Dose: 25 mg Doxycycline Hyclate (Vibramycin) 100 mg PO Q12HR [facility] Last Admin: 04/23/16 09:07 Dose: 100 mg Fluoxetine HCl (Prozac) 40 mg PO DAILY [facility] Last Admin: 04/23/16 09:07 Dose: 40 mg Fluticasone Propionate (Flonase) 1 gm NASBOTH DAILY [facility] Last Admin: 04/23/16 09:08 Dose: 1 spray Ceftriaxone Sodium/Dextrose 1 (gm/ Premix) 50 mls @ 100 mls/hr IV Q24H [facility] Last Admin: 04/22/16 16:02 Dose: 100 mls/hr Olanzapine (Zyprexa) 5 mg PO DAILY [facility] Last Admin: 04/23/16 09:07 Dose: 5 mg Ondansetron HCl (Zofran) 4 mg IVPUSH Q4H PRN PRN Reason: Nausea Melatonin/Pyridoxine (Hcl (B6)) 1 each PO BEDTIME [facility] Last Admin: 04/22/16 20:18 Dose: Not Given Polysaccharide Iron Complex (Ferrex 150) 150 mg PO DAILY [facility] Last Admin: 04/23/16 09:07 Dose: 150 mg Trazodone HCl (Trazodone) 50 mg PO BEDTIME [facility] Last Admin: 04/22/16 20:18 Dose: 50 mg Discontinued Medications Albuterol/Ipratropium (Duoneb 3.0-0.5 Mg/3 Ml) 3 ml NEB ONETIME ONE Stop: 04/20/16 14:08 Last Admin: 04/20/16 14:26 Dose: 3 ml Guaifenesin (Mucinex) 600 mg PO TID [facility] Last Admin: 04/21/16 14:39 Dose: 600 mg Sodium Chloride (Normal Saline) 1,000 mls @ 125 mls/hr IV STAT [facility] Last Admin: 04/20/16 14:34 Dose: 125 mls/hr Ceftriaxone Sodium/Dextrose 1 (gm/ Premix) 50 mls @ 100 mls/hr IV ONETIME ONE Stop: 04/20/16 17:06 Last Admin: 04/20/16 17:13 Dose: 100 mls/hr Sodium Chloride (Normal Saline) 1,000 mls @ 125 mls/hr IV STAT [facility] Stop: 04/20/16 22:14 Last Admin: 04/20/16 17:30 Dose: 125 mls/hr Methylprednisolone Sodium Succinate (Solu-Medrol) 125 mg IVPUSH ONETIME ONE Stop: 04/20/16 14:09 Last Admin: 04/20/16 14:33 Dose: 125 mg Trazodone HCl (Trazodone) 50 mg PO ONETIME [facility] Trazodone HCl (Trazodone) 50 mg PO ONETIME ONE Stop: 04/20/16 22:42 Last Admin: 04/20/16 22:50 Dose: 50 mg - Exam Quality Assessment: skin breakdown General: oriented, severe distress Neck: supple, trachea midline Lungs: Rales (faint rales left chest) Extremities: no edema, no cyanosis Psy/Mental Status: alert, normal affect - Problem List & Annotations (1) General weakness SNOMED Code(s): 04869344 Code(s): R53.1 - WEAKNESS Status: Acute Current Visit: Yes (2) Pneumonia SNOMED Code(s): 371358776 Code(s): J18.9 - PNEUMONIA, UNSPECIFIED ORGANISM Status: Acute Current Visit: Yes Qualifiers: Pneumonia type: due to unspecified organism Laterality: unspecified laterality Lung location: unspecified part of lung Qualified Code(s): J18.9 - Pneumonia, unspecified organism (3) Distal radius fracture, right SNOMED Code(s): 447580361 Code(s): S52.501A - UNSP FRACTURE OF THE LOWER END OF RIGHT RADIUS, INIT Status: Chronic Current Visit: No Qualifiers: Encounter type: initial encounter Fracture type: closed Fracture morphology: unspecified fracture morphology Qualified Code(s): S52.501A - Unspecified fracture of the lower end of right radius, initial encounter for closed fracture - Problem List Review Problem List Initiated/Reviewed/Updated: Yes - My Orders Last 24 Hours: My Active Orders 04/23/16 15:30 Warfarin [Coumadin] 3 mg PO DAILY - Plan Plan:: This 76 year old female admitted for pneumonia and supratherapeutic INR 1. Pneumonia: Continue Rocephin and Doxycycline for community acquired pneumonia. BC 03/02 positive, will monitor until MIS back. Sputum culture pending. Duonebs and oxygen as needed. Mucinex discontinued due to flushing. WBC 6,000 today. 2. Supratherpeutic INR: INR remains 3.9 today. Continue to monitor as there is no active bleeding. Hold Coumadi today. Will restart home dosing tomorrow, INR to be checked next week with PCP. 3. Anxiety: Continue home medications 4. Generalized weakness: Consult PT for strengthening. 5. L wrist fracture: Splint intact, little to no pain. Able to move fingers well , no numbness or tingling. Arrange outpatient appointment with Orthopedics. 6. L leg swelling: Nursing noted swelling last evening to L leg. Patient reports it intermittently swells at times. 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 Doppler complete which was negative for DVT. VTE: Coumadin. Dispo: Discharge in am. 04/23/2016: INR about 2. REstart warfarin at reduced dosage anticipate discharge within 48 hours She has profound malaise today. continue antibiotics. Casie Leal MD
[2016-04-23] MEDS: cefTRIAXone 1 GM in Premix Bag 1 BAG IV SCH (16:17)
[2016-04-23] MEDS: traZODone 50 MG Tab PO SCH (22:09)
[2016-04-24] MEDS: Iron Polysaccharides Complex 150 MG Cap PO SCH (10:31)
[2016-04-24] MEDS: Cholecalciferol (Vitamin D3) 1,000 Unit Tab PO SCH (10:32)
[2016-04-24] MEDS: OLANZapine 5 MG Tab PO SCH (10:32)
[2016-04-24] MEDS: FLUoxetine 20 MG Cap PO SCH (10:33)
[2016-04-24] MEDS: Doxycycline 100 MG Cap PO SCH ×2 (10:33→20:56)
[2016-04-24] MEDS: Fluticasone Propionate Nasal Spray 16 GM Bottle NASBOTH SCH (10:34)
--- NOTE | 2016-04-24 14:24 | PCM.PN ---
- General Info Date of Service: 04/24/16 - Review of Systems Systems Review Comment:: still dyspnea with walking but feels better than yesterday - Patient Data Vitals - most recent: Last Vital Signs Temp 97.7 F 04/24/16 08:00 Pulse 95 04/24/16 08:00 Resp 16 04/24/16 08:00 BP 119/73 04/24/16 08:00 Pulse Ox 94 L 04/24/16 08:00 Weight - most recent: 77.5 kg I&O - last 24 hours: Intake & Output 04/23/16 04/24/16 04/24/16 22:59 06:59 14:59 Intake Total 640 870 Output Total 850 1000 Balance -210 -130 Med Orders - Current: Current Medications Acetaminophen (Tylenol) 650 mg PO Q4H PRN PRN Reason: Pain Albuterol/Ipratropium (Duoneb 3.0-0.5 Mg/3 Ml) 3 ml NEB Q4HRRT PRN PRN Reason: Shortness Of Breath/wheezing Cholecalciferol (Vitamin D3) 2,000 units PO DAILY [facility] Last Admin: 04/24/16 10:32 Dose: 2,000 units Diphenhydramine HCl (Benadryl) 25 mg PO Q6H PRN PRN Reason: Itching Last Admin: 04/21/16 21:26 Dose: 25 mg Doxycycline Hyclate (Vibramycin) 100 mg PO Q12HR [facility] Last Admin: 04/24/16 10:33 Dose: 100 mg Fluoxetine HCl (Prozac) 40 mg PO DAILY [facility] Last Admin: 04/24/16 10:33 Dose: 40 mg Fluticasone Propionate (Flonase) 1 gm NASBOTH DAILY [facility] Last Admin: 04/24/16 10:34 Dose: 1 spray Ceftriaxone Sodium/Dextrose 1 (gm/ Premix) 50 mls @ 100 mls/hr IV Q24H [facility] Last Admin: 04/23/16 16:17 Dose: 100 mls/hr Olanzapine (Zyprexa) 5 mg PO DAILY [facility] Last Admin: 04/24/16 10:32 Dose: 5 mg Ondansetron HCl (Zofran) 4 mg IVPUSH Q4H PRN PRN Reason: Nausea Melatonin/Pyridoxine (Hcl (B6)) 1 each PO BEDTIME [facility] Last Admin: 04/23/16 22:12 Dose: Not Given Polysaccharide Iron Complex (Ferrex 150) 150 mg PO DAILY [facility] Last Admin: 04/24/16 10:31 Dose: 150 mg Trazodone HCl (Trazodone) 50 mg PO BEDTIME [facility] Last Admin: 04/23/16 22:09 Dose: 50 mg Warfarin Sodium (Coumadin) 3 mg PO DAILY@1400 [facility] Last Admin: 04/23/16 16:17 Dose: 3 mg Discontinued Medications Albuterol/Ipratropium (Duoneb 3.0-0.5 Mg/3 Ml) 3 ml NEB ONETIME ONE Stop: 04/20/16 14:08 Last Admin: 04/20/16 14:26 Dose: 3 ml Guaifenesin (Mucinex) 600 mg PO TID [facility] Last Admin: 04/21/16 14:39 Dose: 600 mg Sodium Chloride (Normal Saline) 1,000 mls @ 125 mls/hr IV STAT [facility] Last Admin: 04/20/16 14:34 Dose: 125 mls/hr Ceftriaxone Sodium/Dextrose 1 (gm/ Premix) 50 mls @ 100 mls/hr IV ONETIME ONE Stop: 04/20/16 17:06 Last Admin: 04/20/16 17:13 Dose: 100 mls/hr Sodium Chloride (Normal Saline) 1,000 mls @ 125 mls/hr IV STAT [facility] Stop: 04/20/16 22:14 Last Admin: 04/20/16 17:30 Dose: 125 mls/hr Methylprednisolone Sodium Succinate (Solu-Medrol) 125 mg IVPUSH ONETIME ONE Stop: 04/20/16 14:09 Last Admin: 04/20/16 14:33 Dose: 125 mg Trazodone HCl (Trazodone) 50 mg PO ONETIME [facility] Trazodone HCl (Trazodone) 50 mg PO ONETIME ONE Stop: 04/20/16 22:42 Last Admin: 04/20/16 22:50 Dose: 50 mg - Exam General: alert, oriented, cooperative Neck: trachea midline Lungs: Rales (right lateral chest near the area of lung base ) Cardiovascular: regular rate, regular rhythm - Problem List & Annotations (1) General weakness SNOMED Code(s): 18895866 Code(s): R53.1 - WEAKNESS Status: Acute Current Visit: Yes (2) Pneumonia SNOMED Code(s): 110474890 Code(s): J18.9 - PNEUMONIA, UNSPECIFIED ORGANISM Status: Acute Current Visit: Yes Qualifiers: Pneumonia type: due to unspecified organism Laterality: unspecified laterality Lung location: unspecified part of lung Qualified Code(s): J18.9 - Pneumonia, unspecified organism (3) Distal radius fracture, right SNOMED Code(s): 135322346 Code(s): S52.501A - UNSP FRACTURE OF THE LOWER END OF RIGHT RADIUS, INIT Status: Chronic Current Visit: No Qualifiers: Encounter type: initial encounter Fracture type: closed Fracture morphology: unspecified fracture morphology Qualified Code(s): S52.501A - Unspecified fracture of the lower end of right radius, initial encounter for closed fracture - Problem List Review Problem List Initiated/Reviewed/Updated: Yes - My Orders Last 24 Hours: My Active Orders 04/23/16 15:30 Warfarin [Coumadin] 3 mg PO DAILY@1400 - Plan Plan:: This 76 year old female admitted for pneumonia and supratherapeutic INR 1. Pneumonia: Continue Rocephin and Doxycycline for community acquired pneumonia. BC 03/02 positive, will monitor until MIS back. Sputum culture pending. Duonebs and oxygen as needed. Mucinex discontinued due to flushing. WBC 6,000 today. 2. Supratherpeutic INR: INR remains 3.9 today. Continue to monitor as there is no active bleeding. Hold Coumadi today. Will restart home dosing tomorrow, INR to be checked next week with PCP. 3. Anxiety: Continue home medications 4. Generalized weakness: Consult PT for strengthening. 5. L wrist fracture: Splint intact, little to no pain. Able to move fingers well , no numbness or tingling. Arrange outpatient appointment with Orthopedics. 6. L leg swelling: Nursing noted swelling last evening to L leg. Patient reports it intermittently swells at times. 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 Doppler complete which was negative for DVT. VTE: Coumadin. Dispo: Discharge in am. 04/23/2016: INR about 2. REstart warfarin at reduced dosage anticipate discharge within 48 hours She has profound malaise today. continue antibiotics. Casie Leal MD 04/24/2016 anticipate discharge tomorrow. Casie Leal MD
[2016-04-24] MEDS: cefTRIAXone 1 GM in Premix Bag 1 BAG IV SCH (16:35)
[2016-04-24] MEDS: traZODone 50 MG Tab PO SCH (20:56)
[2016-04-25] MEDS: OLANZapine 5 MG Tab PO SCH (10:33)
[2016-04-25] MEDS: Cholecalciferol (Vitamin D3) 1,000 Unit Tab PO SCH (10:33)
[2016-04-25] MEDS: FLUoxetine 20 MG Cap PO SCH (10:33)
[2016-04-25] MEDS: Doxycycline 100 MG Cap PO SCH (10:33)
[2016-04-25] MEDS: Fluticasone Propionate Nasal Spray 16 GM Bottle NASBOTH SCH (10:34)
[2016-04-25] MEDS: Iron Polysaccharides Complex 150 MG Cap PO SCH (10:34)
--- NOTE | 2016-04-25 11:32 | PCM.DCSUM1 ---
Discharge Summary - Hospital Course Brief History: This 76 year old female with pmh of DVT on Coumadin and anxiety presented to the ED today with complaints of weakness, cough and URI. She states over the last couple days she is feeling herself more and more weak from cold. She denies fevers, but has had some chills at home. Confirms cough, that is productive intermittently, sinus congestion with ear fullness, sore throat. She denies chest pain, but has pleuritic pain with coughing. She has had her influenza vaccine and pneumonia vaccine. In the ED influenza swab negative. CXR reported and normal, but there is some bilateral haziness noted. She does not feel ok to go home tonight. INR noted to be elevated at 5, no bleeding noted. She was admitted for pneumonia and supratherapeutic INR. - Discharge Data Discharge Date: 04/25/16 Discharge Disposition: Home, Self-Care 01 Condition: Good - Discharge Diagnosis/Problem(s) (1) Pneumonia SNOMED Code(s): 332753440 ICD Code: J18.9 - PNEUMONIA, UNSPECIFIED ORGANISM Status: Acute Current Visit: Yes Qualifiers: Pneumonia type: due to unspecified organism Laterality: unspecified laterality Lung location: unspecified part of lung Qualified Code(s): J18.9 - Pneumonia, unspecified organism (2) General weakness SNOMED Code(s): 39637155 ICD Code: R53.1 - WEAKNESS Status: Acute Current Visit: Yes (3) Supratherapeutic INR SNOMED Code(s): 800820417, 421401540 ICD Code: R79.1 - ABNORMAL COAGULATION PROFILE Status: Acute Current Visit: Yes (4) Distal radius fracture, right SNOMED Code(s): 814664157 ICD Code: S52.501A - UNSP FRACTURE OF THE LOWER END OF RIGHT RADIUS, INIT Status: Chronic Current Visit: No Qualifiers: Encounter type: initial encounter Fracture type: closed Fracture morphology: unspecified fracture morphology Qualified Code(s): S52.501A - Unspecified fracture of the lower end of right radius, initial encounter for closed fracture (5) Chronic anticoagulation SNOMED Code(s): 478511994 ICD Code: Z79.01 - [employer] (CURRENT) USE OF ANTICOAGULANTS Status: Acute Current Visit: Yes - Patient Summary/Data Consults: Consultations 04/21/16 05:00 PT Evaluation and Treatment [CONS] Routine - Patient Instructions Diet: Regular Diet as Tolerated Activity: As Tolerated Driving: May Drive Today Showering/Bathing: May Shower Notify Provider of: Fever, Increased Pain, Swelling and Redness, Drainage, Nausea and/or Vomiting Other/Special Instructions: Keep splint in place to L wrist. Move fingers frequently during the day. - Discharge Plan Prescriptions/Med Rec: Doxycycline Calcium [IMW: Doxycycline] 100 mg PO Q12HR #10 capsule Fluticasone Propionate [Flonase] 1 gm NASBOTH DAILY #1 bottle Home Medications: Home Meds Melatonin/Pyridoxine HCl (B6) [Melatonin 5 mg Tablet] 1 each PO BEDTIME [History] Cholecalciferol (Vitamin D3) [Vitamin D3] 2,000 unit PO DAILY 12/10/15 [History] FLUoxetine HCl [Fluoxetine HCl] 40 mg PO DAILY 12/10/15 [History] Iron Polysaccharide Complex [Ferric X-150] 150 mg PO DAILY 12/10/15 [History] OLANZapine [Olanzapine] 5 mg PO DAILY 12/10/15 [History] Warfarin [Coumadin] 5 mg PO DAILY 12/10/15 [History] traZODone 50 mg PO BEDTIME 12/10/15 [History] Acetaminophen [Tylenol] 650 mg PO Q4H PRN #0 tablet 04/25/16 [Rx] Doxycycline Calcium [IMW: Doxycycline] 100 mg PO Q12HR #10 capsule 04/25/16 [Rx] Fluticasone Propionate [Flonase] 1 gm NASBOTH DAILY #1 bottle 04/25/16 [Rx] Patient Handouts: Fluticasone nasal spray, Doxycycline tablets or capsules, Community-Acquired Pneumonia, Adult, [id number] Referrals: Yair Rashid DO [Physician] - 05/02/16 11:30 am Angeli Bush PA [Physician Supervisor Customer Complaint Service] - 04/26/16 10:15 am - Discharge Summary/Plan Comment DC Time >30 min.: No Discharge Summary/Plan Comment: Discharge Diagnoses Community acquired pneumonia Hx DVT L leg Anticoagulation Zohra was admitted and treated for community acquired pneumonia with Rocephin and Doxycycline.She slowly improved. Likely had viral illness with pneumonia. INR was supra-therapeutic on admission, Coumadin held and then restarted over the weekend, INR today 1.55. Will discharge home today. She is feeling better, but still fatigued but feels safe being discharged home. She did have a fall at home with fracture to L wrist, Splint is intact. She will followup with Orthopedics after discharge. She will be discharged home with Doxycycline 100 mg BID for another 5 days. She will follow up in clinic next week with INR check. She will continue Coumadin home dosing of 5 mg daily. - General Info Date of Service: 04/25/16 Admission Dx/Problem (Free Text: pneumonia Subjective Update: Feeling better today, continues to feel ffatigued but this is improving as well. She coughing but much less. No SOB or chest pain. Appetite is improving. Functional Status: Reports: pain controlled, tolerating diet, ambulating, urinating - Review of Systems General: Reports: no symptoms. Denies: fever HEENT: Reports: sinus congestion (improved) Pulmonary: Reports: cough. Denies: shortness of breath, pleuritic chest pain, sputum Cardiovascular: Reports: no symptoms. Denies: chest pain, palpitations, orthopnea, edema Gastrointestinal: Reports: No symptoms. Denies: Abdominal pain, Nausea, Vomiting Genitourinary: Reports: no symptoms. Denies: dysuria, frequency, burning Musculoskeletal: Reports: no symptoms Skin: Reports: no symptoms Neurological: Reports: no symptoms Psychiatric: Reports: no symptoms - Patient Data Vitals - Most Recent: Last Vital Signs Temp 98.0 F 04/25/16 08:00 Pulse 60 04/25/16 08:00 Resp 18 04/25/16 08:00 BP 115/74 04/25/16 08:00 Pulse Ox 93 L 04/25/16 08:00 Weight - Most Recent: 77.5 kg I&O - Last 24 hours: Intake & Output 04/24/16 04/25/16 04/25/16 22:59 06:59 14:59 Intake Total 50 580 Output Total 1150 Balance 50 -570 Lab Results - Last 24 hrs: Laboratory Results - last 24 hr 04/25/16 Range/Units 08:44 INR 1.55 H (0.86-1.11) Med Orders - Current: Current Medications Acetaminophen (Tylenol) 650 mg PO Q4H PRN PRN Reason: Pain Albuterol/Ipratropium (Duoneb 3.0-0.5 Mg/3 Ml) 3 ml NEB Q4HRRT PRN PRN Reason: Shortness Of Breath/wheezing Cholecalciferol (Vitamin D3) 2,000 units PO DAILY [facility] Last Admin: 04/25/16 10:33 Dose: 2,000 units Diphenhydramine HCl (Benadryl) 25 mg PO Q6H PRN PRN Reason: Itching Last Admin: 04/21/16 21:26 Dose: 25 mg Doxycycline Hyclate (Vibramycin) 100 mg PO Q12HR [facility] Last Admin: 04/25/16 10:33 Dose: 100 mg Fluoxetine HCl (Prozac) 40 mg PO DAILY [facility] Last Admin: 04/25/16 10:33 Dose: 40 mg Fluticasone Propionate (Flonase) 1 gm NASBOTH DAILY [facility] Last Admin: 04/25/16 10:34 Dose: 1 spray Ceftriaxone Sodium/Dextrose 1 (gm/ Premix) 50 mls @ 100 mls/hr IV Q24H [facility] Last Admin: 04/24/16 16:35 Dose: 100 mls/hr Olanzapine (Zyprexa) 5 mg PO DAILY [facility] Last Admin: 04/25/16 10:33 Dose: 5 mg Ondansetron HCl (Zofran) 4 mg IVPUSH Q4H PRN PRN Reason: Nausea Melatonin/Pyridoxine (Hcl (B6)) 1 each PO BEDTIME [facility] Last Admin: 04/24/16 23:32 Dose: Not Given Polysaccharide Iron Complex (Ferrex 150) 150 mg PO DAILY [facility] Last Admin: 04/25/16 10:34 Dose: 150 mg Trazodone HCl (Trazodone) 50 mg PO BEDTIME [facility] Last Admin: 04/24/16 20:56 Dose: 50 mg Warfarin Sodium (Coumadin) 3 mg PO DAILY@1400 [facility] Last Admin: 04/24/16 15:36 Dose: 3 mg Discontinued Medications Albuterol/Ipratropium (Duoneb 3.0-0.5 Mg/3 Ml) 3 ml NEB ONETIME ONE Stop: 04/20/16 14:08 Last Admin: 04/20/16 14:26 Dose: 3 ml Guaifenesin (Mucinex) 600 mg PO TID [facility] Last Admin: 04/21/16 14:39 Dose: 600 mg Sodium Chloride (Normal Saline) 1,000 mls @ 125 mls/hr IV STAT [facility] Last Admin: 04/20/16 14:34 Dose: 125 mls/hr Ceftriaxone Sodium/Dextrose 1 (gm/ Premix) 50 mls @ 100 mls/hr IV ONETIME ONE Stop: 04/20/16 17:06 Last Admin: 04/20/16 17:13 Dose: 100 mls/hr Sodium Chloride (Normal Saline) 1,000 mls @ 125 mls/hr IV STAT [facility] Stop: 04/20/16 22:14 Last Admin: 04/20/16 17:30 Dose: 125 mls/hr Methylprednisolone Sodium Succinate (Solu-Medrol) 125 mg IVPUSH ONETIME ONE Stop: 04/20/16 14:09 Last Admin: 04/20/16 14:33 Dose: 125 mg Trazodone HCl (Trazodone) 50 mg PO ONETIME [facility] Trazodone HCl (Trazodone) 50 mg PO ONETIME ONE Stop: 04/20/16 22:42 Last Admin: 04/20/16 22:50 Dose: 50 mg - Exam Quality Assessment: Reports: DVT prophylaxis. Denies: supplemental oxygen General: Reports: alert, oriented Neck: Reports: supple Lungs: Reports: Clear to auscultation, Normal respiratory effort. Denies: Rhonchi, Wheezing Cardiovascular: Reports: regular rate, regular rhythm Abdomen: Reports: bowel sounds present, soft, no tenderness, no distension Extremities: Reports: no edema, normal pulses, other (splint intact to L wrist, bruising continues. Has good movement of fingers with no increased pain, swelling improving.) Neurological: Reports: no new focal deficit Psy/Mental Status: Reports: alert, normal affect, normal mood *Q Meaningful Use (DIS) - VTE *Q VTE Criteria *Q: - Stroke *Q Stroke Criteria *Q: - AMI *Q AMI Criteria *Q:
[2016-04-25 15:35] VITALS: BP 100/63
== END 2016-04-25 12:40 | disposition home or self-care (01) | DRG 194 ==
LOC: MW.ED 13:57 → MW.MS 16:39
PROVIDERS: ADMIT Family Medicine; ATTEND Family Medicine
PROC: 2W38X1Z Immobilization of Right Upper Extremity using Splint (ICD-10-PCS; principal; 2016-04-20)
DX: J18.9 Pneumonia, unspecified organism (principal); J90 Pleural effusion, not elsewhere classified; S52.501A Unspecified fracture of the lower end of right radius, initial encounter for closed fracture; F41.8 Other specified anxiety disorders; Z85.3 Personal history of malignant neoplasm of breast; R53.1 Weakness; R79.1 Abnormal coagulation profile; F41.9 Anxiety disorder, unspecified; W19.XXXA Unspecified fall, initial encounter; Z88.8 Allergy status to other drugs, medicaments and biological substances; Z79.899 Other long term (current) drug therapy; Y92.019 Unspecified place in single-family (private) house as the place of occurrence of the external cause; Z79.01 Long term (current) use of anticoagulants; Z86.718 Personal history of other venous thrombosis and embolism; M79.89 Other specified soft tissue disorders; R06.02 Shortness of breath; Z91.81 History of falling
CPT/HCPCS: 29125; 36415; 70450; 71010; 73110; 80053; 81001; 83880; 84484; 85025; 85610; 87040 ×2; 87804 ×2; 93005; 94664; 96361; 96374; 99285; J2930; J7040; 80048; 87070; 87205; 93971-26-LT; 93971-LT; 96375; 97110-GP; 97161-GP; 97530-GP; 97802; A9270-GY; J0696

== ENCOUNTER → 2016-04-26 | Outpatient (CLI) | payer MEDICARE, OTHER ==
--- NOTE | 2016-04-26 16:45 | CR ---
EXAMINATION: Left wrist HISTORY: Pain COMPARISON: 04/20/2016 TECHNIQUE: 3 views FINDINGS/IMPRESSION: There is a hairline nondisplaced radial styloid fracture. The osseous structure s appear osteopenic. 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
== END ==
LOC: MW.CHORTHO 07:36
PROVIDERS: ATTEND Physician Assistant
DX: M25.532 Pain in left wrist (principal); S52.501A Unspecified fracture of the lower end of right radius, initial encounter for closed fracture; W19.XXXA Unspecified fall, initial encounter; S52.515A Nondisplaced fracture of left radial styloid process, initial encounter for closed fracture; M85.88 Other specified disorders of bone density and structure, other site; M19.042 Primary osteoarthritis, left hand
CPT/HCPCS: 73110; G0463

== ENCOUNTER → 2016-05-02 | Outpatient (CLI) | payer MEDICARE, OTHER | LOC: MW.LAB 11:45 | PROVIDERS: ATTEND Nurse Practitioner Family | DX: Z51.81 Encounter for therapeutic drug level monitoring (principal); Z79.01 Long term (current) use of anticoagulants; I82.409 Acute embolism and thrombosis of unspecified deep veins of unspecified lower extremity | CPT/HCPCS: 36415; 85610; 99214 ==

== ENCOUNTER → 2016-05-25 | Outpatient (CLI) | payer MEDICARE, OTHER ==
--- NOTE | 2016-05-25 16:54 | CR ---
EXAMINATION: Left wrist HISTORY: Pain COMPARISON: 04/26/2016 TECHNIQUE: 2 views FINDINGS/IMPRESSION: There is a stable nondisplaced healing radial styloid fracture identified. Dege nerative changes are noted at the scaphotrapezial articulation and first CMC joint. The remaining os seous structures appear stable.
== END ==
LOC: MW.CHORTHO 07:42
PROVIDERS: ATTEND Physician Assistant
DX: M25.532 Pain in left wrist (principal); S52.502D Unspecified fracture of the lower end of left radius, subsequent encounter for closed fracture with routine healing
CPT/HCPCS: 73100-26-LT; 73100-LT; G0463

== ENCOUNTER 2016-06-04 17:16 | Emergency (ER) | payer MEDICARE, OTHER ==
[2016-06-04 18:08] LABS: CHLORIDE,CL 109 mmol/L (98-110); SODIUM,NA 142 mmol/L (136-146)
[2016-06-04] MEDS ORDERED: Ondansetron 4 MG/2 ML SDV IVPUSH ONE ×2 (18:12→19:36)
[2016-06-04] MEDS ORDERED: HYDROmorphone 1 MG/ML Syringe IV ONE (18:12)
--- NOTE | 2016-06-04 19:42 | EDM.PDOC ---
ED HPI Trauma - General Chief Complaint: Trauma Stated Complaint: PT FELL AND HURT RT SHOULDER,RT HIP Time Seen by Provider: 06/04/16 17:16 Source: Reports: Patient, EMS History Limitations: Reports: No limitations - History of Present Illness INITIAL COMMENTS - FREE TEXT/NARRATIVE: HISTORY AND PHYSICAL: History of present illness: [Patient comes to the emergency room via [facility]. She tripped and fell down approximately 12 stairs and was found by her around 4 PM. She did not have any dizziness prior to falling. She states that she had both arms full and thinks that she tripped causing her to follow the stairs. She landed on her right shoulder. She had a loss of consciousness that she describes as "brief". She is unable to identify the length of time that she was unconscious. She complains of pain to her neck, her forehead and back of head, and her right shoulder. 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 Past medical history: As per history of present illness and as reviewed below otherwise noncontributory. Surgical history: As per history of present illness and as reviewed below otherwise noncontributory. Social history: No reported history of drug or alcohol abuse. Family history: As per history of present illness and as reviewed below otherwise noncontributory. Physical exam: General: Patient presents to the emergency room in a c-collar, on a backboard with an inflatable splint surrounding her entire body. She did not appear to be in any acute distress. HEENT: She has an abrasion to her right upper forehead. Oral mucous membranes are pink and moist. No broken teeth. Throat is clear. No hemotympanum noted. Pupils are equal at 3 mm and somewhat sluggish. negative for conjunctival pallor or scleral icterus. She is tender over the C-spine. Lungs: Clear to auscultation, breath sounds equal bilaterally. chest nontender. Breathes easily. Heart: S1S2, regular rate and rhythm. No murmur or abnormalities noted. Abdomen: Bowel sounds are normoactive. Abdomen soft, nondistended, nontender. Negative for masses. Pelvis: Stable, nontender. Genitourinary: Deferred. Rectal: Deferred. Back: She is nontender over spinal processes. No abrasions or abnormalities noted. No ecchymosis or erythema noted. Extremities: Tremor noted to R lower extremity. Pt reports that this is baseline. Extremities are atraumatic in appearance. No swelling or deformities noted. Pedal pulses are 2+ and equal bilaterally. Neurovascular unremarkable. No neurological abnormalities to bilateral upper extremities. Neuro: Awake, alert, oriented. Cranial nerves II through XII unremarkable. Motor and sensory unremarkable throughout. Exam nonfocal. Diagnostics: [Head CT without contrast, C-spine CT, chest CT] Therapeutics: [Dilaudid 0.5 mg IV, Zofran 4 mg IV x2] Impression: [Acute C2 fracture Left first rib fracture Right humeral head and neck fracture, mildly impacted moderately comminuted T1 compression fracture T8 compression fracture therapeutic INR] Plan: [Head CT shows no intracranial abnormalities. Other radiological findings are as stated under impression. INR 2.15. Patient exhibited no neurological findings while in the ER. Dr. Bg Hernandez at [facility] agrees to accept patient in transfer by EMS ground.] Definitive disposition and diagnosis as appropriate pending reevaluation and review of above. Allergies/ADRs: Allergies guaifenesin Allergy (Mild, Verified 04/22/16 04:06) Itching Facial Redness and Itching hydrocodone Allergy (Verified 04/20/16 14:10) Rash Home Medications: Ambulatory Orders Cholecalciferol (Vitamin D3) [Vitamin D3] 2,000 unit PO DAILY 12/10/15 [ Confirmed 06/04/16] FLUoxetine HCl [Fluoxetine HCl] 40 mg PO DAILY 12/10/15 [Confirmed 06/04/16] Iron Polysaccharide Complex [Ferric X-150] 150 mg PO DAILY 12/10/15 [Confirmed 06/04/16] OLANZapine [Olanzapine] 5 mg PO BEDTIME 12/10/15 [Confirmed 06/04/16] Warfarin [Coumadin] 5 mg PO BEDTIME 12/10/15 [Confirmed 06/04/16] traZODone 50 mg PO BEDTIME 12/10/15 [Confirmed 06/04/16] Levomefolate Calcium [l-Methylfolate] 15 mg PO DAILY 06/04/16 [Confirmed ] Melatonin 5 mg PO BEDTIME 06/04/16 [Confirmed 06/04/16] Past Medical History HEENT History: Reports: Impaired vision Cardiovascular History: Reports: Blood clots/VTE/DVT Respiratory History: Reports: None Gastrointestinal History: Reports: None Genitourinary History: Reports: None [employer] History: Reports: Musculoskeletal History: Reports: Fracture Other Musculoskeletal History: left forearm fracture Psychiatric History: Reports: Anxiety, Depression Endocrine/Metabolic History: Reports: None Oncologic (Cancer) History: Reports: Breast - Past Surgical History HEENT Surgical History: Reports: Adenoidectomy, Tonsillectomy GI Surgical History: Reports: Appendectomy, Cholecystectomy Female Surgical History: Reports: Hysterectomy Oncologic Surgical History: Reports: Mastectomy Social & Family History - Family History Family Medical History: Noncontributory - Tobacco Use Smoking Status *Q: Never Smoker Second Hand Smoke Exposure: No - Caffeine Use Caffeine Use: Reports: Coffee - Recreational Drug Use Recreational Drug Use: No Review of Systems - Review of Systems Review Of Systems: ROS reveals no pertinent complaints other than HPI. ED EXAM, TRAUMA (MAJOR/MULTI) - Physical Exam Exam: See Below Course - Orders/Labs/Meds Orders: Active Orders 24 hr Category Date Time Status EKG Documentation Completion [RC] STAT Care 06/04/16 17:19 Active Cervical Spine wo Cont [CT] Stat Exams 06/04/16 17:17 Taken Chest wo Cont [CT] Stat Exams 06/04/16 17:51 Taken Head wo Cont [CT] Stat Exams 06/04/16 17:17 Taken UA W/MICROSCOPIC [URIN] Stat Lab 06/04/16 17:19 Uncollected Labs: Laboratory Tests 06/04/16 06/04/16 06/04/16 Range/Units 17:35 17:35 17:35 WBC 17.44 H (4.0-11.0) K/uL RBC 3.78 L (4.30-5.90) M/uL Hgb 11.7 L (12.0-16.0) g/dL Hct 35.2 L (36.0-46.0) % MCV 93.1 (80.0-98.0) fL MCH 31.0 (27.0-32.0) pg MCHC 33.2 (31.0-37.0) g/dL RDW Std Deviation 51.8 (28.0-62.0) fl RDW Coeff of Joaquin 15 (11.0-15.0) % Plt Count 189 (150-400) K/uL MPV 9.50 (7.40-12.00) fL Add Manual Diff YES Neutrophils % (Manual) 64 (48.0-80.0) % Band Neutrophils % 18 % Lymphocytes % (Manual) 16 (16.0-40.0) % Monocytes % (Manual) 2 (0.0-15.0) % Nucleated RBC % 0.0 /100WBC Absolute Seg Neuts 11.2 Band Neutrophils # 3.1 Lymphocytes # (Manual) 2.8 Monocytes # (Manual) 0.3 Nucleated RBCs # 0 K/uL Reactive Lymphocytes FEW INR 2.15 H (0.86-1.11) Sodium 142 (136-146) mmol/L Potassium 3.6 (3.5-5.1) mmol/L Chloride 109 (98-110) mmol/L Carbon Dioxide 23 (21-31) mmol/L BUN 21 (6.0-23.0) mg/dL Creatinine 0.7 (0.6-1.5) mg/dL Est Cr Clr Drug Dosing TNP Estimated GFR (MDRD) > 60.0 ml/min Glucose 113 H (60-110) mg/dL Calcium 8.4 L (8.8-10.8) mg/dL Total Bilirubin 0.3 (0.1-1.5) mg/dL AST 26 (5-40) IU/L ALT 24 (8-54) IU/L Alkaline Phosphatase 76 (40-150) Troponin I (0.0-0.29) NG/ML Total Protein 5.9 L (6.0-8.0) g/dL Albumin 3.5 (3.4-4.8) g/dL Globulin 2.4 (2.0-3.5) g/dL Albumin/Globulin Ratio 1.5 (1.3-2.8) 06/04/16 Range/Units 17:35 WBC (4.0-11.0) K/uL RBC (4.30-5.90) M/uL Hgb (12.0-16.0) g/dL Hct (36.0-46.0) % MCV (80.0-98.0) fL MCH (27.0-32.0) pg MCHC (31.0-37.0) g/dL RDW Std Deviation (28.0-62.0) fl RDW Coeff of Joaquin (11.0-15.0) % Plt Count (150-400) K/uL MPV (7.40-12.00) fL Add Manual Diff Neutrophils % (Manual) (48.0-80.0) % Band Neutrophils % % Lymphocytes % (Manual) (16.0-40.0) % Monocytes % (Manual) (0.0-15.0) % Nucleated RBC % /100WBC Absolute Seg Neuts Band Neutrophils # Lymphocytes # (Manual) Monocytes # (Manual) Nucleated RBCs # K/uL Reactive Lymphocytes INR (0.86-1.11) Sodium (136-146) mmol/L Potassium (3.5-5.1) mmol/L Chloride (98-110) mmol/L Carbon Dioxide (21-31) mmol/L BUN (6.0-23.0) mg/dL Creatinine (0.6-1.5) mg/dL Est Cr Clr Drug Dosing Estimated GFR (MDRD) ml/min Glucose (60-110) mg/dL Calcium (8.8-10.8) mg/dL Total Bilirubin (0.1-1.5) mg/dL AST (5-40) IU/L ALT (8-54) IU/L Alkaline Phosphatase (40-150) Troponin I < 0.10 (0.0-0.29) NG/ML Total Protein (6.0-8.0) g/dL Albumin (3.4-4.8) g/dL Globulin (2.0-3.5) g/dL Albumin/Globulin Ratio (1.3-2.8) Meds: Medications Discontinued Medications Generic Name Dose Route Start Last Admin Trade Name Felixq PRN Reason Stop Dose Admin Hydromorphone HCl 0.5 mg 06/04/16 18:12 06/04/16 18:21 Dilaudid IV 06/04/16 18:13 0.5 mg ONETIME ONE Administration Ondansetron HCl 4 mg 06/04/16 18:12 06/04/16 18:19 Zofran IVPUSH 06/04/16 18:13 4 mg ONETIME ONE Administration Ondansetron HCl 4 mg 06/04/16 19:36 06/04/16 20:28 Zofran IVPUSH 06/04/16 19:37 4 mg ONETIME ONE Administration Departure - Departure Time of Disposition: 20:40 Disposition: DC/Tfer to Acute Hospital 02 Condition: fair Clinical Impression: C2 cervical fracture Qualifiers: Encounter type: initial encounter Fracture type: closed Fracture morphology: unspecified fracture morphology Fracture alignment: nondisplaced Qualified Code( s): S12.101A - Unspecified nondisplaced fracture of second cervical vertebra, initial encounter for closed fracture Closed fracture of rib of left side Qualifiers: Encounter type: initial encounter Rib fracture type: single rib Qualified Code( s): S22.32XA - Fracture of one rib, left side, initial encounter for closed fracture Fracture of humeral head, closed Qualifiers: Encounter type: initial encounter Laterality: right Qualified Code(s): S42.291A - Other displaced fracture of upper end of right humerus, initial encounter for closed fracture Compression fracture of thoracic vertebra Qualifiers: Encounter type: initial encounter Fracture type: closed Qualified Code(s): S22.000A - Wedge compression fracture of unspecified thoracic vertebra, initial encounter for closed fracture Forms: ED Department Discharge - My Orders Last 24 Hours: My Active Orders 06/04/16 17:17 Cervical Spine wo Cont [CT] Stat Head wo Cont [CT] Stat 06/04/16 17:19 EKG Documentation Completion [RC] STAT UA W/MICROSCOPIC [URIN] Stat 06/04/16 17:51 Chest wo Cont [CT] Stat - Assessment/Plan Last 24 Hours: My Active Orders 06/04/16 17:17 Cervical Spine wo Cont [CT] Stat Head wo Cont [CT] Stat 06/04/16 17:19 EKG Documentation Completion [RC] STAT UA W/MICROSCOPIC [URIN] Stat 06/04/16 17:51 Chest wo Cont [CT] Stat
[2016-06-05 01:27] VITALS: BP 146/73
--- NOTE | 2016-06-06 10:40 | CT ---
EXAM DATE: 06/04/16 PATIENT'S AGE: 76 Patient: MCKENZIE SPENCER Facility: [place], [place] Site . Site : 1940 Study: CT Head [id number]/8/2017 6:04:34 PM Ordering Physician: Doctor Soler Final Report: INDICATION: FALL CT HEAD WITHOUT CONTRAST TECHNIQUE: Multiple axial CT images were performed through the head without intravenous contrast administration. COMPARISON: 04/20/[address] FINDINGS: No acute intracranial hemorrhage is identified. No extra-axial fluid collections are evident and there is no mass effect or midline shift. There is unchanged very mild diffuse age-related brain atrophy. Ventricular size and configuration are within normal limits for the patient`s age. Bee-white differentiation is within normal limits. There is an unchanged 2.1 x 1.1 x 1.5 centimeter heavily calcified extra-axial mass in the inferior frontal region in the midline, consistent with a chronic meningioma. Scalp hematoma is noted over the vertex and right frontal region. No calvarial fractures are demonstrated. There is a fracture of C2 which is further evaluated by a concurrently performed cervical spine CT. Included portions of the paranasal sinuses and mastoid air cells are normally aerated. IMPRESSION: 1. No acute intracranial abnormality identified. 2. Scalp hematoma. No calvarial fracture identified. 3. Stable mild age-related brain atrophy and chronic meningioma in the inferior frontal region. RUPINDER ALFORD MD [employer] Dictated by Hakeem Alford MD @ 06/04/2016 6:27:13 PM Dictated by: Hakeem Alford MD @ 06/04/2016 18:30:30 (Electronic Signature) Report Signed by Proxy and Original Signed Document filed in the Medical Record. [facility]
--- NOTE | 2016-06-06 10:41 | CT ---
EXAM DATE: 06/04/16 PATIENT'S AGE: 76 Patient: MCKENZIE SPENCER Facility: [place], [place] Site . Site : 1940 Study: CT Spine Cervical [id number]/8/[id number] 6:04:55 PM Ordering Physician: Doctor Soler Final Report: INDICATION: FALL CT CERVICAL SPINE WITHOUT CONTRAST TECHNIQUE: Multidetector axial CT imaging was performed through the cervical spine, without contrast. Sagittal and coronal reconstructions were generated. FINDINGS: Nondisplaced, mildly comminuted, acute fracture of the right lateral mass of C2 extending to the articular surface of the right C1-2 facet joint and also involving the rubio of the right C2 foramen transversarium. 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 Age-indeterminate, possibly chronic, nondisplaced fracture of an osteophyte along the left superior articular facet of C4 (image 114 of series 301). Acute-appearing mild compression fracture of the T1 vertebral body, involving both the inferior and superior endplates, with mild loss of height. Acute nondisplaced fracture of the left 1st rib. Moderate multilevel degenerative change in the cervical spine, including degenerative disc disease which is greatest at C5-6 and C6-7, and scattered facet joint arthrosis and hypertrophy. Osseous alignment is within normal limits and no subluxation is seen. Included portions of the airway and lung apices are within normal limits. IMPRESSION: 1. Acute, nondisplaced, mildly comminuted fracture of the right lateral mass of C2 as detailed above. 2. Acute compression fracture of the T1 vertebral body, with mild loss of height. 3. Age-indeterminate nondisplaced fracture of an osteophyte arising from the left superior articular facet of C4. 4. Acute nondisplaced fracture of the left 1st rib. 5. Cervical spondylosis, as detailed above. RUPINDER ALFORD MD [employer] Dictated by Hakeem Alford MD @ 06/04/2016 6:52:20 PM Dictated by: Hakeem Alford MD @ 06/04/2016 18:53:43 (Electronic Signature) Report Signed by Proxy and Original Signed Document filed in the Medical Record. [facility] CENTERDeann
--- NOTE | 2016-06-06 10:42 | CT ---
EXAM DATE: 06/04/16 PATIENT'S AGE: 76 Patient: MCKENZIE SPENCER Facility: [place], [place] Site . Site : 1940 Study: CT Chest [id number]/8/2017 6:09:13 PM Ordering Physician: Doctor Soler Final Report: INDICATION: FALL, RIGHT ARM PAIN CT CHEST WITHOUT CONTRAST TECHNIQUE: Multidetector CT imaging was performed through the chest without intravenous contrast administration. Coronal and sagittal reconstructions were generated. COMPARISON: None. FINDINGS: Lungs and airways: Probably chronic mild mosaic attenuation pattern throughout both lungs. Several scattered areas of mild lung scarring. No acute-appearing areas of pulmonary consolidation. Central airways are patent. No hilar lymphadenopathy. Pleura and pleural spaces: No pleural effusions or pneumothorax. Heart and mediastinum: Normal heart size. No significant pericardial effusion. No mediastinal hematoma or lymphadenopathy. Vascular structures: Normal caliber thoracic aorta with mild atherosclerotic calcification. Chest wall and axillae: Status post left mastectomy. No mass or axillary lymphadenopathy. Osseous structures: Acute fracture of the right humeral head and neck with mild impaction at the neck fracture and mild to moderate displacement of the comminuted head fracture fragments. Acute nondisplaced fracture of the left 1st rib. Subacute or chronic fractures of the left 11th and 12th ribs and of the anterior right 3rd rib. Acute mild compression fracture of the T1 vertebral body. Mild compression fracture of T5, favored to be chronic. Acute mild compression fracture of T8. Chronic-appearing moderate to severe compression fracture of T12. Upper abdomen: Large hiatal hernia. Status post cholecystectomy. IMPRESSION: 1. Acute mild compression fractures of the T1 and T8 vertebral bodies. Acute nondisplaced fracture of the left 1st rib. 2. Acute, mildly impacted and moderately comminuted fracture of the right humeral head and neck. 3. Multiple nonacute fractures as detailed above. 4. Nonspecific mild mosaic attenuation pattern in the lungs, likely chronic. 5. Nonacute additional findings as detailed above. RUPINDER ALFORD MD [employer] Dictated by Hakeem Alford MD @ 06/04/2016 7:12:41 PM Dictated by: Hakeem Alford MD @ 06/04/2016 19:14:03 (Electronic Signature) Report Signed by Proxy and Original Signed Document filed in the Medical Record. [facility]
== END 2016-06-04 21:00 ==
LOC: MW.ED 17:16
DX: S12.100A Unspecified displaced fracture of second cervical vertebra, initial encounter for closed fracture (principal); S22.32XA Fracture of one rib, left side, initial encounter for closed fracture; S42.291A Other displaced fracture of upper end of right humerus, initial encounter for closed fracture; S22.000A Wedge compression fracture of unspecified thoracic vertebra, initial encounter for closed fracture; Z88.5 Allergy status to narcotic agent; Z88.6 Allergy status to analgesic agent; Z79.899 Other long term (current) drug therapy; Z86.718 Personal history of other venous thrombosis and embolism; Z90.49 Acquired absence of other specified parts of digestive tract; Z90.710 Acquired absence of both cervix and uterus; Z90.89 Acquired absence of other organs; Z98.890 Other specified postprocedural states; W01.0XXA Fall on same level from slipping, tripping and stumbling without subsequent striking against object, initial encounter
CPT/HCPCS: 36415; 70450; 71250; 72125; 80053; 84484; 85025; 85610; 93005; 96374; 96375; 96376; 99285; G0390; J1170; J2405

== ENCOUNTER → 2016-07-07 | Outpatient (CLI) | payer MEDICARE, OTHER ==
--- NOTE | 2016-07-07 12:26 | CR ---
EXAMINATION: Oropharyngeal video swallow study. HISTORY: Dysphasia COMPARISON: None TECHNIQUE: Lateral images obtained, speech pathologist present, various barium consistencies provide d. FINDINGS: There is good bolus formation and transfer. There is adequate epiglottic inversion and tra cheal elevation. No laryngeal penetration or tracheal aspiration is noted. IMPRESSION: Grossly unremarkable video swallow study. Please see speech pathology report for full de tails.
== END ==
LOC: MW.DI 08:08
PROVIDERS: ATTEND Family Medicine
DX: R13.10 Dysphagia, unspecified (principal)
CPT/HCPCS: 74230; 74230-26; 92611-GN

== ENCOUNTER → 2016-07-18 | Outpatient (CLI) | payer MEDICARE, OTHER ==
--- NOTE | 2016-07-18 14:26 | CT ---
EXAMINATION: CT cervical and thoracic spine HISTORY: Fractures COMPARISON: MRIs dated 06/05/2016 TECHNIQUE: Axial CT images obtained through the cervical and thoracic spines without contrast. Coron al and sagittal reconstructions obtained. FINDINGS: Cervical spine: There is a stable nondisplaced fracture through the lateral mass at C2. There is als o stable compression fracture at T1, unchanged in appearance. The remaining vertebral body heights a ppear grossly maintained. There is a trace anterolisthesis of C4 on C5. Mild multilevel degenerative changes are noted. No acute appearing fracture. Bone mineralization is otherwise normal. The parave rtebral soft tissues appear normal. The lung apices are clear. Thoracic spine: Mild compression deformities are noted at T4 and T5 with sclerosis along the superio r endplates. There is moderate to severe compression deformity at T8 with mild retropulsion of fragm ents. This demonstrates at least 50% vertebral body height loss, which is increased in severity comp ared to the MRI dated 06/05/2016. There is also a prominent compression fracture noted at T12 with at least 50% vertebral body height loss anteriorly. This also appears grossly unchanged. There is a vic ency noted at T11, likely a hemangioma in comparison to the previous MRI. The paravertebral soft tis sues appear unremarkable. IMPRESSION: 1. Stable right lateral mass fracture. 2. Stable compression deformities at T1, T4, T5, and T12. 3. The previously demonstrated compression deformity at T8 has progressed, and now has moderate retr opulsion, likely abutting the spinal cord. 4. Otherwise multilevel degenerative changes are noted within the cervical and thoracic spine.
== END ==
LOC: MW.DI 08:52
PROVIDERS: ATTEND Neurological Surgery
DX: S12.9XXA Fracture of neck, unspecified, initial encounter (principal); S22.9XXA Fracture of bony thorax, part unspecified, initial encounter for closed fracture
CPT/HCPCS: 72125; 72125-26; 72128; 72128-26